=== PATIENT | female | born 1990 | race Caucasian/White ===

== ENCOUNTER 2022-04-09 08:21 | Outpatient (CLI) | payer OTHER, SELFPAY ==
[2022-04-09 09:55] LABS: Basophils Percent Auto 0.3 % (0.2-1.2); Eosinophils Absolute Auto 0.1 K/mm3 (0-0.3); Eosinophils Percent Auto 0.8 % (0-4.4); Hematocrit 34.4 % (37.0-47.0); Hemoglobin 11.4 g/dL (12.0-15.0); Immature Granulocyte Absolute 0.15 K/mm3 (0.00-0.031); Immature Granulocyte Percent A 1.9 % (0-0.5); Lymphocytes Absolute Auto 1.55 K/mm3 (0.9-3.2); Lymphocytes Percent Auto 19.8 % (18.3-44.2); Mean Corpuscular HGB Conc 33.1 g/dl (32-36); Mean Corpuscular Hemoglobin 29.2 pg (26-34); Monocytes Absolute Auto 0.4 K/mm3 (0.1-0.6); Monocytes Percent Auto 4.8 % (2.6-8.5); Neutrophils Absolute Auto 5.7 K/mm3 (1.3-6.7); Neutrophils Percent Auto 72.4 % (45.5-73.1); Platelet Count Result 198 k/mm3 (150-375); Red Blood Count 3.91 M/mm3 (4.2-5.4); Red Cell Distribution Width 12.8 % (11.5-14.5); White Blood Count 7.8 K/mm3 (4.5-10.0)
[2022-04-09 10:03] LABS: Glucose 1 Hour PP 50gm Dose 151 mg/dL
[2022-04-09 10:44] LABS: HIV 1/2 Ab P24 Ag Result Negative (Negative)
== END 2022-04-09 08:22 | disposition home or self-care (01) ==
LOC: ANHLAB 08:24
PROVIDERS: PCP Nurse Practitioner; Visit Provider Student in an Organized Health Care Education/Training Program
DX: Z34.90 Encounter for supervision of normal pregnancy, unspecified, unspecified trimester (principal); Z3A.00 Weeks of gestation of pregnancy not specified
CPT/HCPCS: 36415; 82947; 85025; 86703; G0432

== ENCOUNTER 2022-06-11 16:56 | Inpatient (IN) | payer OTHER, SELFPAY ==
[2022-06-11] VITALS (18 sets, daily range): BP systolic 93–122; BP diastolic 56–73; PULSE 78–108; O2SAT 98–100; BMI 37.8
--- NOTE | 2022-06-11 17:19 | P.PNAN_ITS ---
Anes - Eval Pre Procedure Procedure: Labor epidural Date/Time: 06/11/22 17:19 Pre Op Diagnosis: Induction of Labor Patient Data Age: 31 Gender: F Height: Weight: Allergies Allergy/AdvReac Type Severity Reaction Status Date / Time bismuth subsalicylate Allergy Severe Other Verified 06/07/22 16:03 [From Pepto-Bismol] Patient hx anesthesia problems: none Family hx anesthesia problems: none Results Review: All pre-operative results and documents have been reviewed as part of the pre- operative evaluation. 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
--- NOTE | 2022-06-11 17:28 | LDADM ---
This patient, Irina Brewer, was admitted to Labor/Delivery/Recovery 103 on 06/11/22 at 16:56. Plans for labor, pain management and were discussed with patient. Patient/family oriented to hospital policies and general routines including ID bracelet, bed and alarms, visiting hours, pain management, procedures, bathroom and other care routines, personal items, smoking policy, room service/diet and guest tray routines, infant security routines, and visiting hours. Patient/Family are encouraged to report perceived risks to care and to ask questions if they do not understand what they are told or what they should do. See OBIX for further documentation.
[2022-06-11 18:09] LABS: Basophils Percent Auto 0.5 % (0.2-1.2); Eosinophils Absolute Auto 0.1 K/mm3 (0-0.3); Eosinophils Percent Auto 0.8 % (0-4.4); Hematocrit 29.8 % (37.0-47.0); Hemoglobin 9.8 g/dL (12.0-15.0); Immature Granulocyte Absolute 0.02 K/mm3 (0.00-0.031); Immature Granulocyte Percent A 0.3 % (0-0.5); Lymphocytes Absolute Auto 1.77 K/mm3 (0.9-3.2); Lymphocytes Percent Auto 22.8 % (18.3-44.2); Mean Corpuscular HGB Conc 32.9 g/dl (32-36); Mean Corpuscular Hemoglobin 27.2 pg (26-34); Mean Corpuscular Volume 82.8 fl (80-100); Mean Platelet Volume 9.5 fl (7.4-10.4); Monocytes Absolute Auto 0.5 K/mm3 (0.1-0.6); Monocytes Percent Auto 6.8 % (2.6-8.5); Neutrophils Absolute Auto 5.3 K/mm3 (1.3-6.7); Neutrophils Percent Auto 68.8 % (45.5-73.1); Platelet Count Result 216 k/mm3 (150-375); Red Cell Distribution Width 14.2 % (11.5-14.5); White Blood Count 7.8 K/mm3 (4.5-10.0)
[2022-06-11] MEDS: miSOPROStol 25 MCG TABLET VAGINAL ×2 (19:00→23:00)
[2022-06-11 19:16] LABS: Rubella IgG Antibody 7.9 IU/ML
[2022-06-11 19:19] LABS: Hepatitis B Surface Antigen Negative (Negative)
[2022-06-11 20:17] LABS: Rapid Plasma Reagin Non-Reactive (NonReactive)
[2022-06-11 23:11] LABS: Glucose Point of Care 143 mg/dl (65-105)
[2022-06-12] VITALS (113 sets, daily range): BP systolic 77–130; BP diastolic 29–106; PULSE 62–215; RESP 16; TEMP 36.4–37.3; O2SAT 88–100
[2022-06-12 03:08] LABS: Glucose Point of Care 98 mg/dl (65-105)
[2022-06-12 07:04] LABS: Glucose Point of Care 94 mg/dl (65-105)
[2022-06-12] MEDS: LACTATED RINGERS 1,000 ML 125 ML IV CONT ×2 (08:11→09:45)
--- NOTE | 2022-06-12 08:33 | WPDHPUPDATE1 ---
History and Physical Update Update Date/Time: 06/12/22 08:33 31 yo at 39w3d who presents for IOL. has been complicated by diet controlled gestational diabetes. History and Physical has been reviewed, including an updated exam of the patient. There are NO changes in the patient's condition. Risks, benefits, and alternatives have been discussed and questions answered. Patient agrees to proceed with procedure. A/P: admit to L&D routine admission orders Rh+ GBS neg will monitor BS continuous EFM cytotec IOL
--- NOTE | 2022-06-12 08:36 | PM.OBPNLAB ---
Pain Control Date/time seen: 06/12/22 08:36 Pain control: tolerating well Pelvic Exam Dilation (cm): 4 Effacement (%): 50 station: -3 Amniotic membrane status: Intact Status status: Category l Assessment and Plan Assessment: induction ongoing Comments: AROM for scant amount of clear fluid
[2022-06-12] MEDS: OXYTOCIN 30 UNITS/NS 500 ML 30 UNITS/500 ML BAG IV CONT (08:40)
[2022-06-12] MEDS: FAMOTIDINE 20 MG/2 ML VIAL IV PUSH (11:27)
[2022-06-12 11:33] LABS: Glucose Point of Care 85 mg/dl (65-105)
--- NOTE | 2022-06-12 13:16 | PM.OBPRVD ---
OB - Delivery Note Procedure Procedure: Patient pushed for a spontaneous vaginal delivery. The fetus was delivered atraumatically and placed on the maternal abdomen. The cord was clamped and cut after 1 minute of life. The cord was double clamped and cut and a segment of cord was collected for cord gases. Cord blood was collected for blood type and Coomb's testing. The placenta delivered spontaneously and was noted to be intact. The perineum was inspected and there were no lacerations noted. The uterus was firm and good hemostasis was noted. The patient and fetus were stable in the delivery room. Induction method: Per Misoprostol Protocol Delivery augmentation: Rupture of Membranes and Pitocin Delivery monitor: External FHT Route of delivery: Episiotomy description: None Laceration Description: None Specimen: No Quantitative Blood Loss (ml): 250 Anesthesia type: Epidural Disposition: Floor () Complications: No immediate complications Baby Date of : 06/12/22 Time of : 13:01 Weeks of gestation at delivery: 39 gender: Female Weight (pounds): 8 Weight (ounces): 2 presentation: vertex position: Right Occiput Anterior Placenta delivery description: Spontaneous Cord Vessel Description: 3 Vessels score one minute: 8 score five minutes: 9 AMG Delivery Billing Delivery Delivery: Delivery Charge
[2022-06-12] MEDS: OXYTOCIN 30 UNITS/NS 500 ML 30 UNITS/500 ML BAG 125 UNITS IV CONT (13:28)
[2022-06-12] MEDS: IBUPROFEN 600 MG TABLET PO (16:02)
--- NOTE | 2022-06-12 17:29 | OBPPTRN ---
[id number] Patient transferred to post room #285 via W/C. Support person present. Oriented to unit, room, information board, rooming in, admission packet and security measures. Patient verbalizes understanding.
[2022-06-13] MEDS: IBUPROFEN 600 MG TABLET PO ×3 (01:42→22:42)
[2022-06-13 03:00] VITALS: BP 93/54; PULSE 78; RESP 16; TEMP 37; O2SAT 99
[2022-06-13 04:26] LABS: Glucose Point of Care 95 mg/dl (65-105)
[2022-06-13 04:53] LABS: Hematocrit 28.2 % (37.0-47.0); Hemoglobin 9.3 g/dL (12.0-15.0)
--- NOTE | 2022-06-13 08:18 | P.PNOB_ITS ---
OB - PN: Subj Subjective Date/time seen: 06/13/22 08:18 Patient comments: no complaints, pain well controlled and tolerating diet [place] feeding status: exclusively breast feeding Narrative: patient doing well this AM. No complaints. Pain is well controlled. She reports minimal bleeding. She is ambulating and voiding without difficulty. She is tolerating PO. She denies N/V, fever, chills. OB - PN: Obj Data Labs 06/13/22 04:23 Labs: Laboratory Results - last 24 hr 06/12/22 06/13/22 06/13/22 11:26 04:22 04:23 Hgb 9.3 L Hct 28.2 L POC Capillary Glucose 85 95 OB - PN A/P Plan day: 1 Plan: routine care Comments: patient doing well H/H , will start iron supplementation continue routine care Time Spent With Patient Time: Total time spent is greater than 50% in coordination of care (as documented) at patient's floor/unit and/or counseling patient: Time with patient: less than 15 minutes Review of Systems Review of Systems: All systems reviewed & are unremarkable except as noted in HPI and below Exam Const: General: comfortable and no acute distress Resp: Effort & Inspection: normal respiratory effort Cardio: Rate: regular rate GI: GI Palp: Yes Soft to palpation and No Tenderness to palpation present (GI) Auscultation: normal bowel sounds Other: fundus firm and below umbilicus. Psych: Affect: normal affect
[2022-06-13] MEDS: MULTIVIT/MIN/PREN/FOL AC/IRON TABLET 1 TAB PO (11:41)
[2022-06-13] MEDS: POLYSACCHARIDE IRON COMPLEX 150 MG CAPSULE PO ×2 (11:41→16:11)
[2022-06-13 11:42] VITALS: BP 97/67; PULSE 91; RESP 18; TEMP 37.1; O2SAT 98
[2022-06-13] MEDS: DOCUSATE SODIUM 100 MG CAPSULE PO ×2 (11:42→16:11)
[2022-06-13 12:40] VITALS: BP 93/60; PULSE 84; RESP 18; TEMP 36.7; O2SAT 99
[2022-06-13 20:00] VITALS: BP 100/69; PULSE 72; RESP 16; TEMP 36.8; O2SAT 98
--- NOTE | 2022-06-14 05:43 | PC.NURSE ---
05/24/2022 at 2200 Patient was given the opportunity to view the discharge video Mother & Baby Care, The First Two Weeks and to ask questions. Patient declined viewing the video and has been given the mother/baby guide for home reference. This is mother's fifth delivery.
[2022-06-14] MEDS: MULTIVIT/MIN/PREN/FOL AC/IRON TABLET 1 TAB PO (07:50)
[2022-06-14] MEDS: IBUPROFEN 600 MG TABLET PO ×2 (07:50→16:52)
[2022-06-14] MEDS: POLYSACCHARIDE IRON COMPLEX 150 MG CAPSULE PO ×2 (07:50→16:51)
[2022-06-14] MEDS: MEASLES,MUMPS,RUBELLA VACCINE 0.5 ML VIAL SUB-Q (07:51)
[2022-06-14 08:45] VITALS: BP 96/65; PULSE 77; RESP 16; TEMP 37.1; O2SAT 97
--- NOTE | 2022-06-14 09:15 | PM.OBDSVD ---
DS: Admitting Diagnosis Discharge Date 06/14/22 Admitting Diagnosis Intrauterine at term gestational diabetes DS: Discharge Diagnosis Discharge Diagnosis (1) : Code(s): Z34.90 - Encounter for supervision of normal , unspecified, unspecified trimester Status: Acute OB - DS: Summary OB Procedures : None OB Procedures Intrapartum: Spontaneous Vag Delivery OB Procedures: : None Peripartum Data Delivery Method: Natural Vaginal Laceration Description: None complications: none Status at Discharge Functional status at discharge: independent ambulation Overall status at discharge: patient is back to baseline Time Spent with Patient Time attestation: Total time spent providing and/or coordinating discharge services: Time spent: Less than 30 minutes Exam Const: General: comfortable and no acute distress Resp: Effort & Inspection: normal respiratory effort Auscultation: clear to auscultation bilaterally Cardio: Rate: regular rate GI: GI Palp: Yes Soft to palpation Auscultation: normal bowel sounds Other: Fundus firm below umbilicus Psych: Appearance: grossly normal Mental Status: mental status grossly normal Affect: normal affect Discharge Plan Discharge Discharging Clinician: Joce Nunez Patient Disposition: Home, Self-Care Activity: as tolerated and pelvic rest Diet: regular Patient Instructions: Antibiotic Form Stand Alone Forms: General Discharge Information Follow-up/Referrals: Joce Nunez MD [Physician] - Discharge Medications: New acetaminophen [Mapap (acetaminophen)] 325 mg Tablet 650 mg PO Q6H PRN (Reason: Mild Pain (1-3) Or Headache) Qty: 30 0RF ibuprofen 600 mg Tablet 600 mg PO Q6H PRN (Reason: Cramping) Qty: 30 0RF polysaccharide iron complex 150 mg iron Capsule 150 mg PO BIDWM Qty: 60 0RF Date of admission: 06/11/22 16:56 Primary Care Provider: Claude,Cristin Daniel Admitting Provider: Joce Nunez Attending physician on admission: Joce Nunez Condition: Stable
--- NOTE | 2022-06-14 10:21 | PC.NURSE ---
[id number] Introductions were made and Mother verbalizes she is able to independently latch with appropriate positioning/alignment. She denies any nipple discomfort and when there is discomfort she repositions latch optimally. Mother with successful history demonstrates latching her infant and is responsively . Infant is currently meeting outcomes for weight (getting close to 10% but mother states she feels her milk filling her breast), output, jaundice and feeding frequencies of 8-12 times in 24 hours. Mother declines any additional assistance/education at this time. Mother is encouraged to call for assistance if her infant doesn?t latch or there is discomfort with latching. Mother voiced understanding of information shared and mom and baby guide reviewed for additional resource information. Reported to the primary RN.
[2022-06-14] MEDS: DOCUSATE SODIUM 100 MG CAPSULE PO (16:51)
== END 2022-06-14 18:57 | disposition home or self-care (01) | DRG 807 ==
LOC: ANHLDR 16:59 → ANHOB2 06-12 16:50
PROVIDERS: Admitting Provider Student in an Organized Health Care Education/Training Program; PCP Nurse Practitioner; Visit Provider Student in an Organized Health Care Education/Training Program
DX: O24.429 Gestational diabetes mellitus in childbirth, unspecified control (principal); Z37.0 Single live birth; Z3A.39 39 weeks gestation of pregnancy
CPT/HCPCS: 36415; 82948; 85014; 85018; 85025; 86592; 86762; 86850; 86900; 86901; 87340; 90710; A9270; J2590; J2795; J7120

== ENCOUNTER → 2022-06-15 09:24 | Outpatient (CLI) | payer OTHER, SELFPAY ==
--- NOTE | ~2022-06-15 | MMUS_ITS ---
EXAMINATION: MM diagnostic tobi BI w rozina, US breast BI complete HISTORY: Left breast lump. TECHNIQUE: Additional 3-D tomosynthesis images of the breasts were performed and synthetic 2-D images were generated. CAD analysis was submitted and interpreted. High resolution bilateral complete breas t ultrasound was performed. COMPARISON: No prior studies for comparison. BREAST PARENCHYMAL COMPOSITION: The breasts are extremely dense, which lowers the sensitivity of mamm ography FINDINGS: MAMMOGRAPHIC FINDINGS: There is an obscured mass in the lower inner quadrant of the left breast, middle third. No mammograph ic evidence for malignancy in the right breast. ULTRASOUND: Complete bilateral US of all 4 quadrants of the breasts and retroareolar region was reviewed. Right breast: Normal heterogeneous echotexture without focal solid or cystic mass. Left breast: At 6-7 o'clock, 8 cm from the nipple in the area of palpable concern there is an oval ci rcumscribed parallel oriented hypoechoic mass measuring 4.2 x 2 x 3.6 cm corresponding to the mammogr aphic finding. There is internal vascularity. Mixed posterior attenuation. No other discrete masses a re identified. IMPRESSION: 1. Abnormal solid left breast mass at C6-7 o'clock, 8 cm from the nipple. 2. Ultrasound-guided left breast biopsy recommended. BI-RADS category 4, suspicious findings. Reviewed, dictated and finalized at location A. IC RELATIONS REPRESENTATIVE IMPRESSION: 1. Abnormal solid left breast mass at C6-7 o'clock, 8 cm from the nipple. 2. Ultrasound-guided left breast biopsy recommended. BI-RADS category 4, suspicious findings.
== END ==
PROVIDERS: PCP Nurse Practitioner; Visit Provider Student in an Organized Health Care Education/Training Program
DX: N63.0 Unspecified lump in unspecified breast (principal); R92.8 Other abnormal and inconclusive findings on diagnostic imaging of breast
CPT/HCPCS: 76641; 77062; 77066; G0279

== ENCOUNTER 2022-07-26 15:35 | Outpatient (CLI) | payer OTHER, SELFPAY ==
[2022-07-26 16:54] LABS: Beta HCG Quantitative < 2.39 mIU/ML
== END 2022-07-26 15:36 | disposition home or self-care (01) ==
LOC: ANHLAB 15:36
PROVIDERS: PCP Nurse Practitioner; Visit Provider Student in an Organized Health Care Education/Training Program
DX: N92.6 Irregular menstruation, unspecified (principal)
CPT/HCPCS: 36415; 84702

== ENCOUNTER 2023-12-20 08:53 | Outpatient (CLI) | payer BC, OTHER, SELFPAY ==
[2023-12-20 09:27] LABS: Basophils Percent Auto 0.5 % (0.2-1.2); Eosinophils Absolute Auto 0.1 K/mm3 (0-0.3); Eosinophils Percent Auto 0.7 % (0-4.4); Hematocrit 41.2 % (37.0-47.0); Hemoglobin 13.8 g/dL (12.0-15.0); Immature Granulocyte Absolute 0.03 K/mm3 (0.00-0.031); Immature Granulocyte Percent A 0.4 % (0-0.5); Lymphocytes Absolute Auto 2.29 K/mm3 (0.9-3.2); Lymphocytes Percent Auto 27.9 % (18.3-44.2); Mean Corpuscular HGB Conc 33.5 g/dl (32-36); Mean Corpuscular Hemoglobin 28.9 pg (26-34); Mean Corpuscular Volume 86.2 fl (80-100); Monocytes Absolute Auto 0.5 K/mm3 (0.1-0.6); Neutrophils Absolute Auto 5.3 K/mm3 (1.3-6.7); Neutrophils Percent Auto 64.5 % (45.5-73.1); Platelet Count Result 282 k/mm3 (150-375); Red Blood Count 4.78 M/mm3 (4.2-5.4); Red Cell Distribution Width 12.5 % (11.5-14.5); White Blood Count 8.2 K/mm3 (4.5-10.0)
[2023-12-20 10:26] LABS: HIV 1/2 Ab P24 Ag Result Negative (Negative)
[2023-12-20 10:39] LABS: Hepatitis B Surface Antigen Negative (Negative); Rubella IgG Antibody 31.2 IU/ML
[2023-12-20 16:01] LABS: Rapid Plasma Reagin Non-Reactive (NonReactive)
[2023-12-22 13:59] LABS: CMV IgG Antibody <0.60 U/mL
== END 2023-12-20 08:54 | disposition home or self-care (01) ==
PROVIDERS: PCP Nurse Practitioner; Visit Provider Student in an Organized Health Care Education/Training Program
DX: N94.89 Other specified conditions associated with female genital organs and menstrual cycle (principal)
CPT/HCPCS: 36415; 84702; 85025; 86592; 86644; 86703; 86747; 86762; 86787; 86850; 86900; 86901; 87086; 87088; 87340; G0432

== ENCOUNTER 2024-05-28 10:25 | Outpatient (CLI) | payer OTHER, SELFPAY ==
--- NOTE | ~2024-05-28 | US_ITS ---
US breast LT limited 05/28/2024 10:46 Indication: Palpable left breast lump in the area of known mass which was previously biopsy-proven be nign. Procedure: High-resolution Limited ultrasound of the left breast Comparison: Ultrasound dated 06/15/2022 Findings: There is an oval parallel oriented circumscribed hypoechoic mass at C6-7 o'clock, 5 cm from the nipple with internal vascularity, no posterior features measuring 4.7 x 4.1 x 1.8 cm compared wi th 4.2 x 3.6 x 2 cm on prior examination. Impression: 1: Enlargement of hypoechoic left breast mass at C6-7 o'clock, 5 cm from the nipple. This was previou sly biopsy-proven benign. BI-RADS CATEGORY 3-PROBABLY BENIGN FINDING RECOMMENDATION: 6 month follow-up Limited left breast ultrasound recommended. Reviewed, dictated and finalized at location B. ARCH EPIDEMIOLOGIST Impression: 1: Enlargement of hypoechoic left breast mass at C6-7 o'clock, 5 cm from the ni pple. This was previously biopsy-proven benign. BI-RADS CATEGORY 3-PROBABLY BENIGN FINDING RECOMMENDATION: 6 month follow-up Limited left breast ultrasound recommended.
== END 2024-05-28 10:26 | disposition home or self-care (01) ==
LOC: ANHIMG 10:28
PROVIDERS: PCP Nurse Practitioner; Visit Provider Student in an Organized Health Care Education/Training Program
DX: N63.0 Unspecified lump in unspecified breast (principal); R92.8 Other abnormal and inconclusive findings on diagnostic imaging of breast
CPT/HCPCS: 76642

== ENCOUNTER 2024-06-03 03:11 | Outpatient (CLI) | payer OTHER, SELFPAY ==
[2024-06-03 03:30] VITALS: BP 104/72; PULSE 94
[2024-06-03 03:45] VITALS: BP 105/66; PULSE 96
--- NOTE | 2024-06-03 03:45 | PC.NURSE ---
Call placed to Dr. Ronquillo with pt c/o decrease movement, pt stated she has not felt baby move since yesterday. SInce being here she has felt baby move 7 times, but states that he is not moving as much as he normally does. FHR and CTX reported. Order to d/c pt home undelievered.
--- NOTE | 2024-06-03 03:55 | PC.NURSE ---
Pt discharged home undelivered in stable condition per order from dr. brown. Discharged labor precautions with pt. Pt stated understanding. All questions and concerns answered. PT ambulated out of unit with all belongings.
== END 2024-06-03 03:56 | disposition home or self-care (01) ==
LOC: ANHOBOP 03:18 → ANHLDR 03:23
PROVIDERS: PCP Nurse Practitioner; Visit Provider Student in an Organized Health Care Education/Training Program
DX: Z34.90 Encounter for supervision of normal pregnancy, unspecified, unspecified trimester (principal); Z3A.00 Weeks of gestation of pregnancy not specified
CPT/HCPCS: 59025

== ENCOUNTER 2024-06-05 16:23 | Outpatient (CLI) | payer OTHER, SELFPAY ==
[2024-06-05 16:47] LABS: Hematocrit 30.8 % (37.0-47.0); Hemoglobin 10.1 g/dL (12.0-15.0); Mean Corpuscular HGB Conc 32.8 g/dl (32-36); Mean Corpuscular Hemoglobin 27.6 pg (26-34); Mean Corpuscular Volume 84.2 fl (80-100); Mean Platelet Volume 9.5 fl (7.4-10.4); Platelet Count Result 214 k/mm3 (150-375); Red Blood Count 3.66 M/mm3 (4.2-5.4); Red Cell Distribution Width 13.8 % (11.5-14.5); White Blood Count 8.9 K/mm3 (4.5-10.0)
[2024-06-05 17:43] LABS: HIV 1/2 Ab P24 Ag Result Negative (Negative)
[2024-06-06 07:03] LABS: Rapid Plasma Reagin Non-Reactive (NonReactive)
== END 2024-06-05 16:24 | disposition home or self-care (01) ==
LOC: ANHLAB 16:24
PROVIDERS: PCP Nurse Practitioner; Visit Provider Student in an Organized Health Care Education/Training Program
DX: Z34.90 Encounter for supervision of normal pregnancy, unspecified, unspecified trimester (principal); Z3A.00 Weeks of gestation of pregnancy not specified
CPT/HCPCS: 36415; 85027; 86592; 86703; G0432

== ENCOUNTER 2024-06-28 14:08 | Outpatient (CLI) | payer OTHER, SELFPAY ==
--- NOTE | ~2024-06-28 | US_ITS ---
EXAMINATION: US OB follow up DATE: 06/28/2024 16:03 DAIRY TESTER INDICATION: OB followup. 6, para 5 Estimated date of delivery : 07/24/2024 Gestational age by estimated date: 36 weeks and 2 days TECHNIQUE: Real-time transabdominal obstetric ultrasound. FINDINGS: There is a single intrauterine gestation in vertex presentation. The placenta is to the maternal rig ht with the spine to the maternal left. cardiac activity and movement is noted with a heart rate of 167 beats per minute. The cervix measures 3.5 cm in length, and is closed. The following biometric data were obtained: Biparietal diameter (BPD): 9.6 cm; head circumference (HC): 34.4 cm; abdominal circumference (AC): 35 .4 cm; femur length (FL): 7.5 cm. These measurements are concordant. Estimated weight is 3697 g +/- 555 g, which correlates with the greater than 97th percentile wh en 07/24/2024 is used as estimated date of delivery. As single measurements, these parameters are each equal to the following estimated gestational ages: BPD: 39 weeks 1 days. HC: 39 weeks 5 days. AC: 39 weeks 2 days (greater than 97th percentile). FL: 38 weeks 3 days. estimated gestational age based solely on measurements from this exam is 39 weeks 1 days +/- 2 weeks 5 days. Mild pelvic caliectasis is redemonstrated within the right kidney. The bladder is distended. Amniotic fluid index measures 18.4 cm, (normal range is from 7.7 cm to 24.9 cm). IMPRESSION: Single intrauterine gestation in vertex presentation. Estimated gestational age based on ultrasound measurements is 39 weeks and 1 day. Amniotic fluid inde x is within normal limits The cervix measures 3.5 cm Reviewed, dictated and finalized at location A. Y TESTER IMPRESSION: Single intrauterine gestation in vertex presentation. Estimated gestational age based on ultrasound measurements is 39 weeks and 1 da y. Amniotic fluid index is within normal limits The cervix measures 3.5 cm
== END 2024-06-28 14:09 | disposition home or self-care (01) ==
PROVIDERS: PCP Nurse Practitioner; Visit Provider Student in an Organized Health Care Education/Training Program
DX: Z34.83 Encounter for supervision of other normal pregnancy, third trimester (principal)
CPT/HCPCS: 76816

== ENCOUNTER 2024-07-09 11:25 | Outpatient (RCR) | payer OTHER, SELFPAY ==
[2024-06-28 15:59] VITALS: BP 112/71; PULSE 100
[2024-07-02 13:52] VITALS: BP 116/66; PULSE 102
[2024-07-05 12:51] VITALS: BP 110/73; PULSE 129
[2024-07-05 12:54] VITALS: BP 110/73; PULSE 125
[2024-07-05 13:22] LABS: Add Urine Microscopic? YES; Appearance Urine Cloudy (Clear); Bacteria Urine 3+ /hpf; Bilirubin Urine Negative (Negative); Blood Urine Negative (Negative); Color Urine Yellow (Yellow); Glucose Urine UA Negative (Negative); Ketones Urine 3+ mg/dL (Negative); Leukocyte Esterase Ur 1+ LEU/UL (Negative); Nitrate Urine Negative (Negative); Protein Urine Trace mg/dL (Negative); RBC Urine 0-2 /hpf (0-2); Specific Grav Ur 1.025 (1.001-1.035); Squamous Epithelial Cell Urine Moderate /hpf (Few); Urobilinogen Urine 0.2 mg/dL (<2.0); WBC Urine 21-50 /hpf (0-3); pH Urine 5.5 (5.0-9.0)
--- NOTE | ~2024-07-09 | US_ITS ---
EXAMINATION: US OB BPP wo non-stress DATE: 07/02/2024 14:27 INDICATION: Gestational diabetes TECHNIQUE: Real-time pelvic ultrasound was performed. The interpreting radiologist was not present fo r the study. COMPARISON: None. FINDINGS: There is a single living fetus in vertex presentation. The placenta is maternal right. cardiac activity and movement are demonstrated. heart rate is 140 beats per minute (bpm). Biophysical profile performed by the technologist: breathing (30 sec sustained breathing in 30 minutes): 2 out of 2 movement (3 gross body movements in 30 minutes): 2 out of 2 tone (one episode of cocfwwq-iysgxwvrn-hlkhuif limb movement): 2 out of 2 Amniotic fluid pocket (2 cm): 2 out of 2 Total score: 8 out of 8 IMPRESSION: 1. Single living intrauterine in vertex presentation with heart rate of 140 bpm. 2. Biophysical profile 8 out of 8. Reviewed, dictated and finalized at location B. ESSOR OF RELIGIOUS STUDIES
--- NOTE | ~2024-07-09 | US_ITS ---
EXAMINATION: US OB BPP wo non-stress DATE: 07/09/2024 12:50 INDICATION: Gestational diabetes. TECHNIQUE: Real-time pelvic ultrasound was performed. COMPARISON: Ultrasound 07/02/2024 FINDINGS: There is a single living fetus in vertex presentation. The placenta is on the right. heart rat e is 142 beats per minute (bpm). The amniotic fluid index is 14.5 cm, which is normal. Biophysical profile performed by the technologist: breathing (30 sec sustained breathing in 30 minutes): 2 out of 2 movement (3 gross body movements in 30 minutes): 2 out of 2 tone (one episode of kwtifwr-yhraeokht-fawwkci limb movement): 2 out of 2 Amniotic fluid pocket (2 cm): 2 out of 2 Total score: 8 out of 8 IMPRESSION: 1. Single living fetus in vertex presentation. 2. Biophysical profile 8 out of 8. Reviewed, dictated and finalized at location A. RUNNER
[2024-07-09 11:51] VITALS: BP 106/74; PULSE 119
[2024-07-09 12:01] VITALS: BP 109/68; PULSE 124
[2024-07-09 12:06] VITALS: BP 109/68; PULSE 124
== END 2024-09-26 23:59 | disposition home or self-care (01) ==
LOC: ANHOBOP 11:25
PROVIDERS: PCP Nurse Practitioner; Visit Provider Student in an Organized Health Care Education/Training Program
DX: Z36.89 Encounter for other specified antenatal screening (principal); Z3A.39 39 weeks gestation of pregnancy
CPT/HCPCS: 59025; 76816; 76819; 81001; 87086

== ENCOUNTER 2024-07-11 06:11 | Inpatient (IN) | payer OTHER, SELFPAY ==
[2024-07-11] VITALS (147 sets, daily range): BP systolic 85–169; BP diastolic 44–152; PULSE 87–166; RESP 20; TEMP 36.2–37.2; O2SAT 95–100; BMI 39.9
[2024-07-11 07:13] LABS: Basophils Percent Auto 0.2 % (0.2-1.2); Eosinophils Absolute Auto 0.1 K/mm3 (0-0.3); Hematocrit 28.9 % (37.0-47.0); Hemoglobin 9.4 g/dL (12.0-15.0); Immature Granulocyte Absolute 0.04 K/mm3 (0.00-0.031); Immature Granulocyte Percent A 0.5 % (0-0.5); Lymphocytes Absolute Auto 1.82 K/mm3 (0.9-3.2); Mean Corpuscular HGB Conc 32.5 g/dl (32-36); Mean Corpuscular Hemoglobin 26.3 pg (26-34); Mean Corpuscular Volume 80.7 fl (80-100); Monocytes Absolute Auto 0.5 K/mm3 (0.1-0.6); Monocytes Percent Auto 6.2 % (2.6-8.5); Neutrophils Absolute Auto 5.8 K/mm3 (1.3-6.7); Neutrophils Percent Auto 70.1 % (45.5-73.1); Platelet Count Result 210 k/mm3 (150-375); Red Blood Count 3.58 M/mm3 (4.2-5.4); Red Cell Distribution Width 15.3 % (11.5-14.5); White Blood Count 8.3 K/mm3 (4.5-10.0)
[2024-07-11 07:46] LABS: Glucose Point of Care 123 mg/dl (65-105)
[2024-07-11 07:58] LABS: HIV 1/2 Ab P24 Ag Result Negative (Negative)
[2024-07-11] MEDS: LACTATED RINGERS 1,000 ML 125 ML IV CONT ×3 (08:12→16:46)
[2024-07-11] MEDS: OXYTOCIN 30 UNITS/NS 500 ML 30 UNITS/500 ML BAG IV CONT (08:13)
[2024-07-11 08:14] LABS: Rapid Plasma Reagin Non-Reactive (NonReactive)
[2024-07-11 08:49] LABS: Glucose Point of Care 100 mg/dl (65-105)
[2024-07-11 09:50] LABS: Glucose Point of Care 98 mg/dl (65-105)
--- NOTE | 2024-07-11 12:03 | WPDANESEPP ---
Anes - Eval Pre Procedure Procedure: labor pain management Date/Time: 07/11/24 12:03 Surgeon: dutch Preop Diagnosis: pain during labor Pre Op Diagnosis: IOL Patient Data Age: 34 Gender: F Height: Weight: Last Vital Signs Temp 97.1 F L 07/11/24 07:35 Pulse 107 H 07/11/24 12:01 BP 119/81 07/11/24 12:01 Pulse Ox 98 07/11/24 12:02 Allergies Allergy/AdvReac Type Severity Reaction Status Date / Time bismuth subsalicylate (From Allergy Severe Other Verified 07/09/24 10:26 Pepto-Bismol) Home Medications ?Medication ?Instructions ?Recorded ?Confirmed ?Type vits no.126-ferrous fum 1 tablet PO HS 12/20/23 07/09/24 History 28 mg iron-folic acid 800 mcg tablet (Classic ) docusate sodium 100 mg capsule 100 mg PO 2XW 07/05/24 07/09/24 History (Col-Rite) ergocalciferol (vitamin D2) 1,000 2,000 unit PO DAILY 07/05/24 07/09/24 History unit capsule ferrous sulfate 325 mg (65 mg 325 mg PO 2XW 07/05/24 07/09/24 History iron) tablet nitrofurantoin 100 mg PO Q12H #14 caps 07/06/24 07/09/24 Rx monohydrate/macrocrystals 100 mg capsule (Macrobid) Laboratory Tests 07/11/24 07/11/24 07/11/24 06:24 07:43 08:45 WBC 8.3 K/mm3 (4.5-10.0) RBC 3.58 L M/mm3 (4.2-5.4) Hgb 9.4 L g/dL (12.0-15.0) Hct 28.9 L % (37.0-47.0) MCV 80.7 fl (80-100) MCH 26.3 pg (26-34) MCHC 32.5 g/dl (32-36) RDW 15.3 H % (11.5-14.5) Plt Count 210 k/mm3 (150-375) MPV 10.0 fl (7.4-10.4) Immature Gran % (Auto) 0.5 % (0-0.5) Neut % (Auto) 70.1 % (45.5-73.1) Lymph % (Auto) 22.0 % (18.3-44.2) [place] % (Auto) 6.2 % (2.6-8.5) Eos % (Auto) 1.0 % (0-4.4) Baso % (Auto) 0.2 % (0.2-1.2) Lymph # (Auto) 1.82 K/mm3 (0.9-3.2) [place] # (Auto) 0.5 K/mm3 (0.1-0.6) Eos # (Auto) 0.1 K/mm3 (0-0.3) Baso # (Auto) 0.0 K/mm3 (0.0-0.1) Abs Immat Gran (auto) 0.04 H K/mm3 (0.00-0.031) Absolute Neuts (auto) 5.8 K/mm3 (1.3-6.7) Absolute Nucleated RBC 0.000 K/mm3 (0.0-0.012) Nucleated RBC % 0.0 % (0.0-0.2) POC Capillary Glucose 123 H mg/dl 100 mg/dl (65-105) (65-105) RPR Non-reactive (NonReactive) HIV 1&2 Ab/P24 Ag 4thGn Negative (Negative) Blood Type A Positive Antibody Screen Negative 07/11/24 09:46 WBC RBC Hgb Hct MCV MCH MCHC RDW Plt Count MPV Immature Gran % (Auto) Neut % (Auto) Lymph % (Auto) [place] % (Auto) Eos % (Auto) Baso % (Auto) Lymph # (Auto) [place] # (Auto) Eos # (Auto) Baso # (Auto) Abs Immat Gran (auto) Absolute Neuts (auto) Absolute Nucleated RBC Nucleated RBC % POC Capillary Glucose 98 mg/dl (65-105) RPR HIV 1&2 Ab/P24 Ag 4thGn Blood Type Antibody Screen Patient hx anesthesia problems: none Family hx anesthesia problems: none Results Review: All pre-operative results and documents have been reviewed as part of the pre-operative evaluation. [facility] Past Medical History Medical History Suppression of menses Encounter for initial insertion of intrauterine contraceptive device Surgical History Surgical History History of placement of ear tubes Family History Family History Father Testicular cancer Diabetes mellitus Depression Hypertension Grandparent Diabetes mellitus Cancer Social History Social History Smoking status: Never smoker Second hand tobacco smoke exposure: No Alcohol intake: never Substance use: never Substance use type: does not use Do You Feel Safe in your Home?: Yes Lack of Transportation: No Lack of Food: Never True Current Housing: I Have Housing Concerned About Future Housing: No Difficulty Paying Gas/Electric Bills: No Difficulty Paying for Meds: No Currently Unemployed: No Education: Master's Degree or Higher Difficulty w/ Childcare or Family Care: No Living arrangements: with family Occupation/Education: occupation 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
[2024-07-11] MEDS: FAMOTIDINE 20 MG/2 ML VIAL IV PUSH (12:45)
[2024-07-11 14:13] LABS: Glucose Point of Care 80 mg/dl (65-105)
--- NOTE | 2024-07-11 15:45 | WPDHPUPDATE1 ---
History and Physical Update Update Date/Time: 07/11/24 15:46 34 yo at 38w1d who presents for IOL. complicated by diet controlled gestational diabetes. History and Physical has been reviewed, including an updated exam of the patient. There are NO changes in the patient's condition. Risks, benefits, and alternatives have been discussed and questions answered. Patient agrees to proceed with procedure. A/P: admit to L&D routine admission orders lab reviewed Rh+ GBS neg diet controlled GDM -will monitor/treat blood sugars in labor as needed -continuous EFM -plan for pitocin and AROM for augmentation
[2024-07-11 16:00] LABS: Glucose Point of Care 77 mg/dl (65-105)
--- NOTE | 2024-07-11 18:09 | PM.OBPRVD ---
OB - Vaginal Delivery Note Procedure Delivery date: 07/11/24 Events: Gestational Diabetes Induction method: Per Pitocin Protocol Delivery augmentation: Rupture of Membranes Delivery monitor: External FHT and External Uterine Route of delivery: Episiotomy description: None Laceration Description: None Specimen: No Quantitative Blood Loss (ml): 150 Anesthesia type: Spinal Disposition: Floor Complications: No immediate complications Narrative: Patient pushed for a spontaneous vaginal delivery. The fetus was delivered atraumatically and placed on the maternal abdomen. The cord was clamped and cut after 4.5 minute of life and the pulse had diminished. The cord was double clamped and cut and a segment of cord was collected for cord gases. Cord blood was collected for blood type and Coomb's testing. The placenta delivered spontaneously and was noted to be intact. The perineum was inspected and was noted to be intact. A superficial sebaceous cyst was noted at the introitus of the vagina at the right side. Patient was offered to have the cyst drained while she was anesthetized. The cyst was approximately 2 cm. A simple stab incision was made. The cyst was drained of purulent thin watery fluid. The incision was made hemostatic with a simple figure of 8 suture of 3-0 vicryl. The uterus palpated firm and good hemostasis was noted. Upon examination of the male fetus, it was noted that the had a partial circumcision and hypospadias. Receiving shipping specialist discussed the findings with the patient. [place] Baby Date of : 07/11/24 Time of : 17:49 Gestational Age by Date: 38 Infant gender: Male presentation: vertex position: Right Occiput Anterior Placenta delivery description: Spontaneous Cord Vessel Description: 3 Vessels score one minute: 8 score five minutes: 9
[2024-07-11] MEDS: OXYTOCIN 30 UNITS/NS 500 ML 30 UNITS/500 ML BAG 125 UNITS IV CONT (18:35)
[2024-07-11] MEDS: ACETAMINOPHEN 500 MG TABLET 1000 MG (18:54)
[2024-07-11] MEDS: WITCH HAZEL 40 PADS 1 PAD TOPICAL (19:14)
[2024-07-11] MEDS: BENZOCAINE 20% AER SPR (*SP) 56 GM CAN 1 SPRAY TOPICAL (19:15)
[2024-07-11] MEDS: IBUPROFEN 600 MG TABLET PO (22:07)
[2024-07-12] MEDS: ACETAMINOPHEN 325 MG TABLET 650 MG PO (02:50)
[2024-07-12 04:59] LABS: Hematocrit 32.1 % (37.0-47.0)
[2024-07-12] MEDS: DOCUSATE SODIUM 100 MG CAPSULE PO (07:00)
[2024-07-12] MEDS: MULTIVIT/MIN/PREN/FOL AC/IRON TABLET 1 TAB PO (07:01)
[2024-07-12] MEDS: IBUPROFEN 600 MG TABLET PO (07:01)
[2024-07-12 07:25] VITALS: BP 107/81; PULSE 85; RESP 17; TEMP 36.8; O2SAT 99
--- NOTE | 2024-07-16 07:45 | P.DS_ITS ---
DS: Admitting Diagnosis Discharge Date 07/12/24 Admitting Diagnosis intrauterine at term gestation diabetes DS: Discharge Diagnosis Discharge Diagnosis (1) Normal vaginal delivery: Code(s): O80 - Encounter for full-term uncomplicated delivery Status: Acute OB - DS: Summary OB Procedures : None OB Procedures Intrapartum: Spontaneous Vag Delivery OB Procedures: : None Peripartum Data Laceration Description: None Episiotomy description: None Status at Discharge Functional status at discharge: independent ambulation Overall status at discharge: patient is back to baseline Time Spent with Patient Time attestation: Total time spent providing and/or coordinating discharge services: Time spent: Less than 30 minutes Exam Const: General: comfortable and no acute distress Resp: Effort & Inspection: normal respiratory effort Auscultation: clear to auscultation bilaterally Cardio: Rate: regular rate GI: GI Palp: Yes Soft to palpation Auscultation: normal bowel sounds Other: Fundus firm below umbilicus Psych: Appearance: grossly normal Mental Status: mental status grossly normal Affect: normal affect Discharge Plan Discharge Consulting providers: Kendra Moreira Discharging Clinician: Joce Nunez Patient Disposition: Home, Self-Care Activity: as tolerated and pelvic rest Diet: as tolerated Discharge Instructions: Education: Mom and Baby Guide Given to: Mother Follow-Up: Call your delivering provider's office for an appointment to be seen in: 4 Weeks Mom and baby should come to the [facility] for the follow-up appointment. Appointment Date/Time: at What to expect at your follow-up visit: Call [phone] if you are unable to keep your appointment time. BREAST CARE: * Wear a snug supportive bra. * For engorgement discomfort: Breast Feeding: * Apply warm moist washcloths * Express milk as needed to relieve engorgement * Wear loose clothing Bottle Feeding: * May apply ice packs * For sore nipples: * Identify correct latch-on * Apply warm moist washcloths before and after nursing * Air dry nipples after nursing * May apply Lansinoh cream to nipples ABDOMINAL INCISION: (if applicable) * Allow incision to air dry * Do NOT use lotions for powders on your incision * When showering, allow soap and water to run over the incision, but do not wash incision EPISIOTOMY/PERINEAL CARE: * Until bleeding stops, use your xenia bottle after urinating * Change your pad frequently throughout the day * You may take sitz baths several times a day (fill your bathtub with warm water and soak for 20 minutes.) Do NOT bathe in the water * No tub baths until seen by your physician - You may shower ACTIVITY: * Rest as much as possible. * Do not exercise or lift anything heavier than your baby (such as laundry or other children.) * Avoid stairs or driving as much as possible. * Do not put anything into the vagina. No douching, tampons, or sexual activity until seen by physician. NOTIFY PHYSICIAN IF YOU HAVE ANY QUESTIONS OR IF ANY OF THE FOLLOWING SYMPTOMS OCCUR: * If your episiotomy or incision becomes red, swollen, or more painful than what you have experienced in the hospital. * If your vaginal bleeding becomes foul smelling. * If your vaginal bleeding becomes more heavy than a period or if your bleeding changes from pink to bright red. However, you may pass an occasional walnut- sized clot once or twice for the first week . * If you experience a sharp, shooting pain in you calves. * If you discover a hard, reddened area on your breast or if you experience flu- like symptoms. DIET: * Eat regular, well-balanced meals. * Drink plenty of fluids daily. If , drink to thirst. Patient Instructions: Antibiotic Form, Your Baby (DC), Vaginal Delivery (DC) Patient Language: Sierra Leonean Stand Alone Forms: General Discharge Information Follow-up/Referrals: Joce Nunez MD [Physician] - Discharge Medications: New acetaminophen 500 mg tablet 500 mg PO Q6H PRN (Reason: pain) Qty: 30 0RF ibuprofen 600 mg tablet 600 mg PO Q6H PRN (Reason: pain) Qty: 30 0RF Continued Classic 28 mg iron- 800 mcg tablet 1 tablet PO HS ferrous sulfate 325 mg (65 mg iron) tablet 325 mg PO 2XW docusate sodium [Col-Rite] 100 mg capsule 100 mg PO 2XW Patient Comments: Takes on the days she takes the iron supplement ergocalciferol (vitamin D2) 1,000 unit capsule 2,000 unit PO DAILY nitrofurantoin monohyd/m-cryst [Macrobid] 100 mg capsule 100 mg PO Q12H Qty: 14 0RF Rx Instructions: must administer with a meal/food Date of admission: 07/11/24 06:11 Primary Care Provider: Claude,Cristin Daniel Admitting Provider: Joce Nunez Attending physician on admission: Joce Nunez Condition: Stable
== END 2024-07-12 07:56 | disposition home or self-care (01) | DRG 542 ==
LOC: ANHLDR 06:20 → ANHOB2 20:42
PROVIDERS: Admitting Provider Student in an Organized Health Care Education/Training Program; PCP Nurse Practitioner; Visit Provider Student in an Organized Health Care Education/Training Program
DX: O24.420 Gestational diabetes mellitus in childbirth, diet controlled (principal); Z37.0 Single live birth; Z3A.38 38 weeks gestation of pregnancy; N94.89 Other specified conditions associated with female genital organs and menstrual cycle; O99.892 Other specified diseases and conditions complicating childbirth
CPT/HCPCS: 36415; 82948; 85014; 85018; 85025; 86592; 86703; 86850; 86900; 86901; A9270; G0432; J2590; J2795; J7120

== ENCOUNTER 2024-09-14 18:45 | Emergency (ER) | payer OTHER, SELFPAY ==
--- NOTE | 2024-09-14 18:47 | ED_ITS ---
HPI - URI/Sore Throat General Chief Complaint: Upper Respiratory Infection Stated Complaint: Sore throat / fever Time Seen by Provider: 09/14/24 18:50 Source: patient, RN notes reviewed and old records reviewed Mode of arrival: ambulatory Limitations: no limitations History of Present Illness HPI Narrative: 34-year-old female presents to the [facility] with complaints of 2 days of sore throat, fevers. Onset (ago): day(s) (2) Related Data Home Medications ?Medication ?Instructions ?Recorded ?Confirmed ?Last Taken ?Type vits no.126-ferrous fum 1 tablet PO HS 12/20/23 08/22/24 07/05/24 History 28 mg iron-folic acid 800 mcg tablet (Classic ) docusate sodium 100 mg capsule 100 mg PO 2XW 07/05/24 08/22/24 07/05/24 History (Col-Rite) ergocalciferol (vitamin D2) 1,000 2,000 unit PO DAILY 07/05/24 08/22/24 07/05/24 History unit capsule Allergies Allergy/AdvReac Type Severity Reaction Status Date / Time bismuth subsalicylate (From AdvReac Mild other Verified 09/14/24 19:04 Pepto-Bismol) Review of Systems Review of Systems: All systems reviewed & are unremarkable except as noted in HPI and below Constitutional: Constitutional: Reports as per HPI and Reports fever(s) ENT: Reports as per HPI and Reports sore throat Cardiovascular: Cardiovascular: Reports no additional cardiovascular complaints, Denies chest pain and Denies dyspnea Respiratory: Respiratory: Reports no additional respiratory complaints, Denies chest congestion, Denies cough and Denies dyspnea Musculoskeletal: Musculoskeletal: Reports no additional musculoskeletal complaints Integumentary/Breasts: Skin/Breast: Reports system reviewed and no additional complaints, except as docu PMFSH Past Medical History Medical History Hemorrhoids Suppression of menses Encounter for initial insertion of intrauterine contraceptive device Surgical History Surgical History History of placement of ear tubes Family History Family History Father Testicular cancer Diabetes mellitus Depression Hypertension Grandparent Diabetes mellitus Cancer Social History Social History Smoking status: Never smoker Second hand tobacco smoke exposure: No Alcohol intake: never Substance use: never Substance use type: does not use Do You Feel Safe in your Home?: Yes Lack of Transportation: No Lack of Food: Never True Current Housing: I Have Housing Concerned About Future Housing: No Difficulty Paying Gas/Electric Bills: No Difficulty Paying for Meds: No Currently Unemployed: No Education: Master's Degree or Higher Difficulty w/ Childcare or Family Care: No Living arrangements: with family Occupation/Education: occupation 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 There is no relevant family history pertinent to the patient complaint. Exam Const: General: cooperative, healthy appearing, comfortable, no acute distress, well developed, alert and well nourished Nutritional Appearance: well nourished and obese Orientation/consciousness: patient oriented x3 Limitations: no limitations HENMT: Head: normal to inspection Ears: hearing grossly normal bilaterally, external ears normal, TM's normal bilaterally, EAC's normal, mastoids normal and no periauricular adenopathy Mouth: Yes Normal oral and palatal mucosa present, Yes lip normal, Yes tongue normal and Yes moist mucous membranes Throat: abnormal tonsil bilateral erythema, exudates and hypertrophy Eyes: General: appearance normal, both eyes and all related structures Alignment and Position: alignment normal Neck: Neck: normal visual inspection, full ROM, no lymphadenopathy and no meningeal signs Chest: Chest palpation & inspection: normal inspection of the chest Resp: Effort & Inspection: normal respiratory effort and able to speak in com plete sentences Cardio: Rate: regular rate Skin: General skin exam: normal color and no rashes or lesions noted Neuro: General: patient oriented x3, gait normal, moves all extremities and no meningeal signs Cognition (Neuro): normal cognition Speech: normal speech Gait exam (Neuro): Normal gait present Extrem: General: normal to inspection, full ROM, capillary refill normal and normal gait Psych: Appearance: grossly normal and well kempt Mental Status: mental status grossly normal Speech and movement: Normal speech and movement present and Clear speech present Affect: normal affect Attitude: cooperative Course Course Level of Care: Express Care Visit Vital Signs Vital signs: Vital Signs Temperature 99.6 F 09/14/24 18:56 Pulse Rate 138 H 09/14/24 18:56 Respiratory Rate 20 09/14/24 18:56 Blood Pressure 93/62 L 09/14/24 18:56 Pulse Oximetry 97 09/14/24 18:56 Oxygen Delivery Room Air 09/14/24 18:56 Temperature 99.6 F 09/14/24 18:56 Pulse Rate 138 H 09/14/24 18:56 Respiratory Rate 20 09/14/24 18:56 Blood Pressure 93/62 L 09/14/24 18:56 Pulse Oximetry 97 09/14/24 18:56 Oxygen Delivery Room Air 09/14/24 18:56 Reviewed MDM - URI/Sore Throat MDM Narrative Medical decision making narrative: Patient sitting comfortably in exam room. Nontoxic, vitals are stable. Patient reports that she normally has a lower blood pressure and higher heart rate at rest. Patient presents 2 day history of sore throat. Patient is strep positive. Patient is appropriate for outpatient treatment with close follow-up. Discharge instructions reviewed with patient, as well as provided in writing per nursing staff. The instructions also include specific and strict return/GO TO THE ER as well as f/u information. All questions have been answered, and the patient deny any further questions with discharge and discharge plan. Some parts of this dictation were generated by voice recognition software and may contain typographical and/or grammatical inaccuracies. Differential Diagnosis Differential diagnosis: Likely upper respiratory infection, otitis media, sinusitis, viral infection, bronchitis, influenza and pharyngitis Lab Data Labs: Lab Results 09/14/24 Range/Units 19:04 POC Grp A Strep Screen Positive (Negative) Reviewed Critical Care Time Critical Care Time Critical Care Time: No Discharge Plan Discharge Clinical Impression: Strep throat Patient Disposition: Home, Self-Care Condition: Stable Instructions: Antibiotic Form, Strep Throat (ED) Additional Instructions: After 24-48 hours on antibiotics, Throw the toothbrush away, start using a new one. Please be sure to wash bed linens especially pillow cases. Repeat once you finish the antibiotics. Do not share drinks. Take Motrin alternating with Tylenol for pain and fever alternating every 4 hours. Increase fluids, avoid caffeine. Give plenty of water, juice, Gatorade, Pedialyte, ice pops in Jell-O Follow up with Primary provider if not getting better this week For new or worsening symptoms go directly to the emergency room Patient Language: Guatemalan Prescriptions: New amoxicillin 875 mg tablet 875 mg PO Q12H Qty: 20 0RF No Action Classic 28 mg iron- 800 mcg tablet 1 tablet PO HS docusate sodium [Col-Rite] 100 mg capsule 100 mg PO 2XW Patient Comments: Takes on the days she takes the iron supplement ergocalciferol (vitamin D2) 1,000 unit capsule 2,000 unit PO DAILY Follow-up/Referrals: Claude,ALPA Fernandes [Primary Care Provider] - Stand Alone Forms: Work/School Release IP Time of Disposition: 19:06
--- OUTSIDE RECORDS SUMMARY | 2024-09-14 18:47 | XMS_ITS | Clinical Summary ---
Author Organization [facility] Address [address] [facility] [address] Phone Care Team Providers Care Yard Specialist Name Role Phone Unavailable Primary Care Provider Unavailabl e Allergies Active Allergy Reactions Criticality Noted Date Comments Bismuth Subsalicylate Other (see Comments) High 01/2017 Black hairy tongue Black hairy tongue Medications Contrave 8-90 MG TABLET SR 12 HR TAKE 2 TABLETS BY MOUTH IN THE MORNING AND 2 TABLETS AT NIGHT DIRECTED 1 Active fluticasone (Flovent HFA) 220 MCG/ACT AerosolIndicati ons:COVID-19 take 4 Puffs by inhalation 2 times daily. 12 g 1 Active Spacer/Aero-Hol ding Chambers (OptiChamber Mary) MiscIndications :COVID-19 Use as directed with inhaler. 1 Each 1 Active Social History Tobacco Use Types Packs/Day Years Used Date Smoking Tobacco: Never Smokeless Tobacco: Never Comments No Sex and Gender Information Value Date Recorded Sex Assigned at Not on file Legal Sex Female 2:09 PM CDT Gender Identity Not on file Sexual Orientation Not on file Last Filed Vital Signs Vital Sign Reading Time Taken Comments Blood Pressure 102/74 04/10/2021 3:20 PM CDT Pulse 98 04/10/2021 3:20 PM CDT Temperature 36.9 C (98.5 F) 04/10/2021 3:20 PM CDT Respiratory Rate 18 04/10/2021 3:20 PM CDT Oxygen Saturation 98% 04/10/2021 3:20 PM CDT Inhaled Oxygen Concentration - - Weight 89.8 kg (198 lb) 04/10/2021 3:20 PM CDT Height 165.1 cm (5' 5 ) 04/10/2021 3:20 PM CDT Body Mass Index 32.95 04/10/2021 3:20 PM CDT Plan of Treatment Health Maintenance Due Date Last Done Comments Hepatitis C Virus (HCV) Screening 1989 Hepatitis B Immunization (1 of 3 - 19+ 3-dose series) 2008 Influenza Immunization (#1) 02/26/202403/27, 05/04/2014, 03/24/2013, Additional history exists SARS-COV-2 Immunization ( season) 2024 11/20/2020 Respiratory Syncytial Virus (RSV) Immunization (Adult) (1 - 1-dose 75+ series) 2064 DTaP/Tdap/Td Immunization Discontinued 2018, 12/06/2016, 03/24/2013 TdaP Immunization Completed 01/07/2019, , 03/24/2013 Cervical Cancer Screening (CCS) Discontinued Pap Smear Discontinued 11/30/2019 HPV/Cotest Discontinued Meningococcal Immunization (ACWY) Aged Out No longer eligible based on patient's age to complete this topic Pneumococcal Immunization Combined Aged Out No longer eligible based on patient's age to complete this topic Rotavirus Immunization Aged Out No lo nger eligible based on patient's age to complete this topic Insurance
--- OUTSIDE RECORDS SUMMARY | 2024-09-14 18:47 | XMS_ITS | Encounter Summary ---
Author Organization [facility] Address [address] [place] [address] Care Team Providers Care Oncology Research Rn Name Role Phone Cristin Arce VICE PRESIDENT PLANNING Primary Care Provider [phone] Encounter Details Date Type Department Care Team (Late st Contact Info) Description 04/10/2021 Mark Medical Message Enc [facility] Medical [facility] Family Medicine - [place] [address] [place], [place] [address] Cristin Arce, KASSANDRA [address] [place] [address] RE: Question Social History Tobacco Use Types Packs/Day Years Used Date Smoking Tobacco: Never Smokeless Tobacco: Never Alcohol Use Standard Drinks/Week Comments Yes 0 (1 standard drink = 0.6 oz pur e alcohol) rare PHQ-2 Answer Date Recorded PHQ-2 Score - If the patient scores above 3, please move on to questions 3-9 2 12/10/2020 Comments No Sex and Gender Information Value Date Recorded Sex Assigned at Not on file Legal Sex Female 10:08 PM TIRE SHOP MECHANIC Gender Identity Not on file Sexual Orientation Not on file COVID-19 Exposure Response Date Recorded In the last month, have you been in contact with someone who was confirmed or suspected to have Coronavirus / COVID-19? No / Unsure 04/02/2021 1:57 PM CDT documented as of this encounter Plan of Treatment Not on file documented as of this encounter Visit Diagnoses Not on filedocumented in this encounter Additional Health Concerns Infection Onset Date Last Indicated Resolved Time COVID-19 Rule Out 04/22/2021 04/22/2021 04/22/2021 12:02 PM CDT COVID-19 Rule Out 05/12/2023 05/12/2023 05/12/2023 2:32 PM TIRE SHOP MECHANIC COVID-19 Rule Out 05/12/2023 05/12/2023 05/13/2023 5:23 PM TIRE SHOP MECHANIC Assessment Noted Time PHQ-9 Depression Total Score: 5 12/11/19 1:19 PM CDT documented as of this encounter Care Teams Oncology Research Rn Relationship Specialty Start Date End Date Cristin Arce NP [address] [place] [address] PCP - General NURSE PRACTITIONER 12/08/20 documented as of this encounter
--- OUTSIDE RECORDS SUMMARY | 2024-09-14 18:47 | XMS_ITS | Encounter Summary ---
Author Organization [facility] Address [address] [place] [address] Care Team Providers Care Joy Operator Helper Name Role Phone Cristin Arce GIZZARD PEELER Primary Care Provider [phone] Encounter Details Date Type Department Care Team (Late st Contact Info) Description 12/10/2020 Qwbcg Message Enc [facility] Medical Group Family Medicine - [place] [address] [facility] [place], [place] [address] Cristin Arce, KASSANDRA [address] [place] [address] [place] [address] follow up labs Social History Tobacco Use Types Packs/Day Years Used Date Smoking Tobacco: Never Smokeless Tobacco: Never Alcohol Use Standard Drinks/Week Comments Yes 0 (1 standard drink = 0.6 oz pur e alcohol) PHQ-2 Answer Date Recorded PHQ-2 Score - If the patient scores above 3, please move on to questions 3-9 2 12/10/2020 Comments No Sex and Gender Information Value Date Recorded Sex Assigned at Not on file Legal Sex Female 10:08 PM MONOGRAM OPERATOR Gender Identity Not on file Sexual Orientation Not on file COVID-19 Exposure Response Date Recorded In the last month, have you been in contact with someone who was confirmed or suspected to have Coronavirus / COVID-19? No / Unsure 12/10/2020 12:48 PM CDT documented as of this encounter Plan of Treatment Not on file documented as of this encounter Visit Diagnoses Not on filedocumented in this encounter Additional Health Concerns Infection Onset Date Last Indicated Resolved Time COVID-19 Rule Out 04/22/2021 04/22/2021 04/22/2021 12:02 PM CDT COVID-19 Rule Out 05/12/2023 05/12/2023 05/12/2023 2:32 PM MONOGRAM OPERATOR COVID-19 Rule Out 05/12/2023 05/12/2023 05/13/2023 5:23 PM MONOGRAM OPERATOR Assessment Noted Time PHQ-9 Depression Total Score: 5 12/11/19 1:19 PM CDT documented as of this encounter Care Teams Joy Operator Helper Relationship Specialty Start Date End Date Cristin Arce NP [address] [place] [address] PCP - General NURSE PRACTITIONER 12/08/20 documented as of this encounter
--- OUTSIDE RECORDS SUMMARY | 2024-09-14 18:47 | XMS_ITS | Clinical Summary ---
Author Organization [facility] Address [address] [place] [address] Care Team Providers Care Supervisor Major Appliance Assembly Name Role Phone Joce Nunez MD Unavailable [phone] Cristin Arce MD Primary Care Provider [phone] Allergies Active Allergy Reactions Criticality Noted Date Comments Bismuth Subsalicylate Other (See comments) High 01/2017 Black hairy tongue Black hairy tongue Black hairy tongue Medications FreeStyle Lite Strips strip 05/31/2022 Active prenat.vits,nilda ,jaw-waqq-uxmfo tablet Take 1 each by mouth daily Active naltrexone-bupr opion (Contrave) 8-90 mg tablet extended release TAKE 2 TABLETS BY MOUTH IN THE MORNING AND 2 TABLETS AT NIGHT DIRECTED 04/02/2021 Active freestyle 28 gauge lancets 04/28/2022 Activ e ibuprofen (ADVIL,MOTRIN) 600 mg tablet 06/14/2022 Activ e fluticasone propionate (FLOVENT HFA) 220 mcg/actuation inhaler Inhale 4 puffs 2 (two) times a day 04/10/2021 Active Active Problems Problem Noted Date Diagnosed Date Abnormal mammogram 07/02/2022 Mass of left breast 07/02/2022 Surgical History Surgery Date Site/Laterality Comments BREAST BIOPSY 07/13/2022 Left Family History Medical History Relation Name Comments Testicular cancer Father Relation Name Status Comments Father Social History Tobacco Use Types Packs/Day Years Used Date Smoking Tobacco: Never Smokeless Tobacco: Never Tobacco Cessation:Counseling Given: Not Answered Personal Safety Answer Date Recorded Getting School Help Needed Not on file 07/03 Comments Unknown Sex and Gender Information Value Date Recorded Sex Assigned at Not on file Legal Sex Female 12:57 PM SKILLED HELPER Gender Identity Not on file Sexual Orientation Not on file Obstetrics History Last Filed Vital Signs Vital Sign Reading Time Taken Comments Blood Pressure - - Pulse - - Temperature - - Respiratory Rate - - Oxygen Saturation - - Inhaled Oxygen Concentration - - Weight 87.5 kg (193 lb) 07/02/2022 9:07 AM SKILLED HELPER Height 165.1 cm (5' 5 ) 07/02/2022 9:07 AM SKILLED HELPER Body Mass Index 32.12 07/02/2022 9:07 AM SKILLED HELPER Plan of Treatment Health Maintenance Due Date Last Done Comments Cervical Cancer Screening 1989 Depression Screening 1989 Hepatitis C Screening 1989 Varicella Vaccines (1 of 2 - 13+ 2-dose series) 2002 Hepatitis B Screening 2007 Regular Well Visit/Exam 18-64 2007 Covid-19 Vaccine ( season) 2024 11/20/2020 Influenza Vaccine (#1) 2024 2, 04/12/2020, 04/12/2020, Additional history exists DTaP/Tdap/Td Vaccine (5 - Td or Tdap) 05/11/2032 05/11/2022, 01/07/2019, 12/06/2016, Additional history exists HPV Vaccines Aged Out No longer eligi ble based on patient's age to complete this topic Pneumococcal vaccine <65 Aged Out No longer eligible based on patient's age to complete this topic Insurance [facility] Care Teams Supervisor Major Appliance Assembly Relationship Specialty Start Date End Date Cristin Arce MD PCP - General Nurse Practitioner 06/16/22 Joce Nunez MD Consulting Physician Obstetrics and Gynecology 06/15/22
--- OUTSIDE RECORDS SUMMARY | 2024-09-14 18:47 | XMS_ITS | Encounter Summary ---
Author Organization [facility] Address [address] [place] [address] Care Team Providers Care Teacher Dramatics Name Role Phone Cristin Arce NP Primary Care Provider [phone] Encounter Details Date Type Department Care Team (Late st Contact Info) Description 03/05/2021 [employer] Performance Message Enc [facility] Medical [facility] Family Medicine - [place] [address] [facility] [address] [address] [place], [place] [address] Cristin Arce, KASSANDRA [address] [place] [address] RE: follow up on weight loss medication Social History Tobacco Use Types Packs/Day Years [...] on file Legal Sex Female 10:08 PM PROGRAMMER Gender Identity Not on file Sexual Orientation Not on file COVID-19 Exposure Response Date Recorded In the last month, have you been in contact with someone who was confirmed or suspected to have Coronavirus / COVID-19? No / Unsure 02/24/2021 2:23 PM CDT documented as of this encounter Plan of Treatment Not on file documented as of this encounter Visit Diagnoses Not on filedocumented in this encounter Additional Health Concerns Infection Onset Date Last Indicated Resolved Time COVID-19 Rule Out 04/22/2021 04/22/2021 04/22/2021 12:02 PM CDT COVID-19 Rule Out 05/12/2023 05/12/2023 05/12/2023 2:32 PM PROGRAMMER COVID-19 Rule Out 05/12/2023 05/12/2023 05/13/2023 5:23 PM PROGRAMMER Assessment Noted Time PHQ-9 Depression Total Score: 5 12/11/19 21 1:19 PM CDT documented as of this encounter Care Teams Teacher Dramatics Relationship Specialty Start Date End Date Cristin Arce NP [address] [place] [address] PCP - General NURSE PRACTITIONER 12/08/20 documented as of this encounter
--- OUTSIDE RECORDS SUMMARY | 2024-09-14 18:47 | XMS_ITS | Encounter Summary ---
Author Organization [facility] Address [address] [place] [address] Care Team Providers Care Electromyographic Technician Name Role Phone Cristin Arce INTERNATIONAL BANKER Primary Care Provider +1 -[phone] Encounter Details Date Type Department Care Team (Late st Contact Info) Description 02/18/2021 Group Commerce Message Enc [facility] Medical Group Family Medicine - [place] [address] [facility] [address] [place], [place] [address] Cristin Arce, KASSANDRA [address] [place] [address] [place] [address] RE: Question Social History Tobacco Use Types [...] on file Legal Sex Female 10:08 PM 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 No / Unsure 01/21/2021 11:42 AM CDT documented as of this encounter Plan of Treatment Not on file documented as of this encounter Visit Diagnoses Not on filedocumented in this encounter Additional Health Concerns Infection Onset Date Last Indicated Resolved Time COVID-19 Rule Out 04/22/2021 04/22/2021 04/22/2021 12:02 PM CDT COVID-19 Rule Out 05/12/2023 05/12/2023 05/12/2023 2:32 PM KNOCKOUT MACHINE OPERATOR COVID-19 Rule Out 05/12/2023 05/12/2023 05/13/2023 5:23 PM KNOCKOUT MACHINE OPERATOR Assessment Noted Time PHQ-9 Depression Total Score: 5 12/11/19 1:19 PM CDT documented as of this encounter Care Teams Electromyographic Technician Relationship Specialty Start Date End Date Cristin Arce NP [address] [place] [address] [place] [id number] PCP - General NURSE PRACTITIONER 12/08/20 documented as of this encounter
--- OUTSIDE RECORDS SUMMARY | 2024-09-14 18:47 | XMS_ITS | Encounter Summary ---
Author Organization [facility] Address [address] [place] [address] Care Team Providers Care Saturation Equipment Operator Name Role Phone Cristin Arce NP Primary Care Provider +1 [phone] Encounter Details Date Type Department Care Team (Late st Contact Info) Description 12/24/2020 NanoCompound Message Enc [facility] Medical Group Family Medicine - [place] [address] [facility] [address] [place], [place] [address] Cristin Arce, KASSANDRA [address] [place] [address] [place] [address] RE: Referral Request Social History Tobacco Use Types Packs/Day Years [...] on file Legal Sex Female 10:08 PM ENVIRONMENTAL STUDIES PROFESSOR Gender Identity Not on file Sexual Orientation [...] Rule Out 05/12/2023 05/12/2023 05/12/2023 2:32 PM ENVIRONMENTAL STUDIES PROFESSOR COVID-19 Rule Out 05/12/2023 05/12/2023 05/13/2023 5:23 PM ENVIRONMENTAL STUDIES PROFESSOR Assessment Noted Time PHQ-9 Depression Total Score: 5 12/11/19 1:19 PM CDT documented as of this encounter Care Teams Saturation Equipment Operator Relationship Specialty Start Date End Date Cristin Arce NP [address] [place] [address] [place] [address] PCP - General NURSE PRACTITIONER 12/08/20 documented as of this encounter
--- OUTSIDE RECORDS SUMMARY | 2024-09-14 18:47 | XMS_ITS | Clinical Summary ---
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 OPERATOR Gender Identity Not on file Sexual Orientation Not on file Last Filed Vital Signs Vital Sign Reading Time Taken Comments Blood Pressure 114/74 10/31/2015 7:40 AM CDT Pulse 80 10/31/2015 7:40 AM CDT Temperature 36.9 C (98.4 F) 10/31/2015 7:40 AM CDT Respiratory Rate - - Oxygen Saturation - - Inhaled Oxygen Concentration - - Weight 74.4 kg (164 lb) 10/31/2015 7:40 AM CDT Height 165.1 cm (5' 5 ) 10/31/2015 7:40 AM CDT Body Mass Index 27.29 10/31/2015 7:40 AM CDT Plan of Treatment Health Maintenance Due Date Last Done Comments DTAP/TDAP/TD VACCINES (1 - Tdap) 2008 HEPATITIS B VACCINES (1 of 3 - 19+ 3-dose series) 2008 PAP SMEAR 2019 INFLUENZA VACCINE (#1) 2024 HPV VACCINES Aged Out No longer eligi ble based on patient's age to complete this topic PNEUMOCOCCAL VACCINE 0-49 YEARS Aged Out No longer eligible based on patient's age to complete this topic
--- OUTSIDE RECORDS SUMMARY | 2024-09-14 18:47 | XMS_ITS | Encounter Summary ---
Author Organization [facility] Address [address] [place] [address] Care Team Providers Care Ict Quality Assurance Engineer Name Role Phone Cristin Arce PEN AND PENCIL REPAIRER Primary Care Provider [phone] [phone] Encounter Details Date Type Department Care Team (Late st Contact Info) Description 04/02/2021 ForceManager Message Enc [facility] Medical Group Family Medicine - [place] [address] [facility] [address] [place], [place] [address] Cristin Arce, KASSANDRA [address] [place] [address] [place], [place] [address] RE: follow up on Contrave Social History Tobacco Use Types Packs/Day Years [...] on file Legal Sex Female 10:08 PM TOP FRAME MAKER Gender Identity Not on file Sexual Orientation [...] Rule Out 05/12/2023 05/12/2023 05/12/2023 2:32 PM TOP FRAME MAKER COVID-19 Rule Out 05/12/2023 05/12/2023 05/13/2023 5:23 PM TOP FRAME MAKER Assessment Noted Time PHQ-9 Depression Total Score: 5 12/11/19 21 1:19 PM CDT documented as of this encounter Care Teams Ict Quality Assurance Engineer Relationship Specialty Start Date End Date Cristin Arce NP [address] [place] [address] PCP - General NURSE PRACTITIONER 12/08/20 documented as of this encounter
--- OUTSIDE RECORDS SUMMARY | 2024-09-14 18:47 | XMS_ITS | Encounter Summary ---
Author Organization [facility] Address [address] [place] [address] Care Team Providers Care Business Services Clerk Name Role Phone Cristin Arce COTTAGE ATTENDANT Primary Care Provider +1 [phone] Encounter Details Date Type Department Care Team (Late st Contact Info) Description 12/10/2020 Cobase Message Enc [facility] Medical Group Family Medicine - [place] [address] [facility] [address] [place], [place] [address] Cristin Arce, KASSANDRA [address] [place] [address] [place] [address] RE: Test Results Social History Tobacco Use Types Packs/Day Years [...] on file Legal Sex Female 10:08 PM LANG INTERPRETER Gender Identity Not on file Sexual Orientation [...] Rule Out 05/12/2023 05/12/2023 05/12/2023 2:32 PM LANG INTERPRETER COVID-19 Rule Out 05/12/2023 05/12/2023 05/13/2023 5:23 PM LANG INTERPRETER Assessment Noted Time PHQ-9 Depression Total Score: 5 12/11/19 1:19 PM CDT documented as of this encounter Care Teams Business Services Clerk Relationship Specialty Start Date End Date Cristin Arce NP [address] [place] [address] [place] [id number] PCP - General NURSE PRACTITIONER 12/08/20 documented as of this encounter
--- OUTSIDE RECORDS SUMMARY | 2024-09-14 18:47 | XMS_ITS | Clinical Summary ---
Author Organization [facility] Address [address] [place] [address] Care Team Providers Care Farm Product Purchaser Name Role Phone Cristin Arce NP Primary Care Provider +1 [phone] Allergies Active Allergy Reactions Criticality Noted Date Comments Bismuth Subsalicylate Other (see comment) High 08/04 Black hairy tongue Medications Levonorgestrel (MIRENA, 52 MG, IU) Active Vit-DSS-Fe Cbn-FA ( ADVANTAGE OR) Take 1 each by mouth daily. Active clobetasol (TEMOVATE) 0.05 % ointment 09/06/2022 Active albuterol sulfate HFA 108 (90 Base) MCG/ACT inhalerIndicatio ns:Acute cough Inhale 2 puffs into the lungs every 6 (six) hours as needed for Wheezing. 18 g 05/12/2023 Active Active Problems Problem Noted Date Diagnosed Date Obesity (BMI 30-39.9) 02/24/2021 Tachycardia 12/10/2020 Resolved Problems Problem Noted Date Diagnosed Date Resolved Date Diet controlled gestational diabetes mellitus (GDM) in third trimester ([facility]) 01/07/201912/10 Encounters Date Type Department Care Team Description 06/28/2024 Scan MG HEALTH INFO SRVCS Scanned, Doc Med Group Ultrasound (SCAN) from Last 3 Months Immunizations Name Administration Dates Next Due Influenza Adult (Generic) 04/12/2020,05/04/2014, 03/24/2013,04/26/2012 Tdap (Generic) 01/07/2019,12/06/2016,03/24/2013 Family History Medical History Relation Comments Cancer Father Diabetes Father Hypertension Father Diabetes Maternal Grandfather Hypertension Maternal Grandfather Heart Attack Paternal Grandmother Relation Status Comments Father Alive Maternal Grandfather Mother Alive Paternal Grandmother Social History Tobacco Use Types Packs/Day Years Used Date Smoking Tobacco: Never Passive Smoke Exposure: Never Smokeless Tobacco: Never Tobacco Cessation:Counseling Given: No Alcohol Use Standard Drinks/Week Comments Yes 0 (1 standard drink = 0.6 oz pur e alcohol) rare PHQ-2 Answer Date Recorded Patient Health Questionnaire-2 Score 0 11/15/2022 Comments No Sex and Gender Information Value Date Recorded Sex Assigned at Not on file Legal Sex Female 10:08 PM KNOT SAW OPERATOR Gender Identity Not on file Sexual Orientation Not on file Last Filed Vital Signs Vital Sign Reading Time Taken Comments Blood Pressure 105/72 05/12/2023 2:07 PM KNOT SAW OPERATOR Pulse 94 05/12/2023 2:07 PM KNOT SAW OPERATOR Temperature 36.9 C (98.4 F) 05/12/2023 2:07 PM KNOT SAW OPERATOR Respiratory Rate 22 05/12/2023 2:07 PM KNOT SAW OPERATOR Oxygen Saturation 97% 05/12/2023 2:07 PM KNOT SAW OPERATOR Inhaled Oxygen Concentration - - Weight 98 kg (216 lb) 05/12/2023 2:07 PM KNOT SAW OPERATOR Height 165.1 cm (5' 5 ) 05/12/2023 2:07 PM KNOT SAW OPERATOR Body Mass Index 35.94 05/12/2023 2:07 PM KNOT SAW OPERATOR Plan of Treatment Health Maintenance Due Date Last Done Comments Hepatitis C 2007 Hepatitis B Vaccines (1 of 3 - 19+ 3-dose series) 2008 Annual Physical 12/10/2021 12/10/2020 Cervical Cancer Screening Pap Smear (Age 30 to 64) Every 3 Years 11/29/2022 11/30/2019 COVID-19 Vaccine ( season) 2024 11/20/2020 Influenza Adult (#1) 2024 04/12/2022, 04/12/2020, 05/04/2014, Additional history exists PHQ-2 (Physician Po[place]) 06/27/2024 11/15/2022 Cervical Cancer Screening Pap with HPV Testing (Age 30 to 64) Every 5 Years 11/29/2024 11/30/2019 Cervical Cancer Screening with HPV 11/29/2024 DTaP, Tdap and Td Vaccines (5 - Td or Tdap) 05/11/2032 05/11/2022, 01/07/2019, 12/06/2016, Additional history exists HPV Vaccines Aged Out No longer eligi ble based on patient's age to complete this topic Meningococcal B Vaccine Aged Out No l onger eligible based on patient's age to complete this topic Meningococcal Vaccine Aged Out No cristo ra eligible based on patient's age to complete this topic Pneumococcal Vaccine: Pediatrics (0 to 5 Years) and At-Risk Patients (6 to 64 Years) Aged Out No longer eligible based on patient's age to complete this topic RSV Immunizations Under 20 Months Aged Out No longer eligible based on patient's age to complete this topic Procedures Procedure Name Priority Date/Time Associated Diagnosis Comments ULTRASOUND GENERIC (SCAN ORDER) 06/28/2024 from Last 3 Months Results * ULTRASOUND GENERIC (SCAN ORDER) (06/28/2024) Anatomical Region Laterality Modality Other 06/28/2024 us Doc Med Group Scanned SCANNING Final Resu lt from Last [address] [place] [address] [facility] Care Teams Farm Product Purchaser Relationship Specialty Start Date End Date Cristin Arce NP [address] [place] [address] [place] [address] PCP - General NURSE PRACTITIONER 12/08/20
--- OUTSIDE RECORDS SUMMARY | 2024-09-14 18:47 | XMS_ITS | Referral Summary ---
Author Organization [facility] Address [address] [place] [address] Care Team Providers Care Benzene Still Utility Operator Name Role Phone Joce Nunez MD Unavailable Cristin Arce MD Primary Care Provider +1- [phone] Allergies Active Allergy Reactions Criticality Noted Date Comments Bismuth Subsalicylate Other (See comments) High 01/2017 Black hairy tongue Black hairy tongue Black hairy tongue Medications FreeStyle Lite Strips strip 05/31/2022 Active prenat.vits,nilda ,nmu-wker-rdsoz tablet Take 1 each by mouth daily [...] mammogram 07/02/2022 Mass of left breast 07/02/2022 Social History Tobacco Use Types Packs/Day Years Used Date Smoking Tobacco: Never Smokeless Tobacco: Never Tobacco Cessation:Counseling Given: Not Answered Personal Safety Answer Date Recorded Getting School Help Needed Not on file 07/03 Comments Unknown Sex and Gender Information Value Date Recorded Sex Assigned at Not on file Legal Sex Female 12:57 PM HATCH BOSS Gender Identity Not on file Sexual Orientation Not on file Last Filed Vital Signs Vital Sign Reading Time Taken Comments Blood Pressure - - Pulse - - Temperature - - Respiratory Rate - - Oxygen Saturation - - Inhaled Oxygen Concentration - - Weight 87.5 kg (193 lb) 07/02/2022 9:07 AM HATCH BOSS Height 165.1 cm (5' 5 ) 07/02/2022 9:07 AM HATCH BOSS Body Mass Index 32.12 07/02/2022 9:07 AM HATCH BOSS Plan of Treatment Not on file Insurance [facility] Care Teams Benzene Still Utility Operator Relationship Specialty Start Date End Date Cristin Arce MD PCP - General Nurse Practitioner 06/16/22 Joce Nunez MD Consulting Physician Obstetrics and Gynecology 06/15/22
--- OUTSIDE RECORDS SUMMARY | 2024-09-14 18:47 | XMS_ITS | Encounter Summary ---
Author Organization [facility] Address [address] [place] [address] Care Team Providers Care Printed Circuit Boards Router Name Role Phone Cristin Arce ASPARAGUS CUTTER Primary Care Provider +1 -[phone] Encounter Details Date Type Department Care Team (Late st Contact Info) Description 03/06/2021 Raise Message Enc [facility] Medical Group Family Medicine - [place] [address] [facility] [address] [place], [place] [address] Cristin Arce, KASSANDRA [address] [place] [address] [place] [address] follow up Social History Tobacco Use Types Packs/Day Years [...] on file Legal Sex Female 10:08 PM LEAD MAINTENANCE TECHNICIAN Gender Identity Not on file Sexual Orientation [...] Rule Out 05/12/2023 05/12/2023 05/12/2023 2:32 PM LEAD MAINTENANCE TECHNICIAN COVID-19 Rule Out 05/12/2023 05/12/2023 05/13/2023 5:23 PM LEAD MAINTENANCE TECHNICIAN Assessment Noted Time PHQ-9 Depression Total Score: 5 12/11/19 1:19 PM CDT documented as of this encounter Care Teams Printed Circuit Boards Router Relationship Specialty Start Date End Date Cristin Arce NP [address] [place] [id number] PCP - General NURSE PRACTITIONER 12/08/20 documented as of this encounter
--- OUTSIDE RECORDS SUMMARY | 2024-09-14 18:47 | XMS_ITS | Encounter Summary ---
Author Organization [facility] Address [address] [place] [address] Care Team Providers Care Serology Technician Name Role Phone Cristin Arce SAP PLANT MAINTENANCE CONSULTANT Primary Care Provider +1 -[phone] Encounter Details Date Type Department Care Team (Late st Contact Info) Description 12/17/2020 SuddenValues Message Enc [facility] Medical Group Family Medicine - [place] [address] [facility] [address] [place], [place] [address] Cristin Arce, KASSANDRA [address] [place] [address] [place] [address] Follow Up/Update Social History Tobacco Use Types Packs/Day Years [...] on file Legal Sex Female 10:08 PM BEE BREEDER Gender Identity Not on file Sexual Orientation [...] Rule Out 05/12/2023 05/12/2023 05/12/2023 2:32 PM BEE BREEDER COVID-19 Rule Out 05/12/2023 05/12/2023 05/13/2023 5:23 PM BEE BREEDER Assessment Noted Time PHQ-9 Depression Total Score: 5 12/11/19 1:19 PM CDT documented as of this encounter Care Teams Serology Technician Relationship Specialty Start Date End Date Cristin Arce NP [address] [place] [id number] PCP - General NURSE PRACTITIONER 12/08/20 documented as of this encounter
[2024-09-14 18:56] VITALS: BP 93/62; PULSE 138; RESP 20; TEMP 37.6; O2SAT 97
[2024-09-14 19:06] LABS: EDSTREPNEGPOS1 Positive (Negative)
== END 2024-09-14 19:08 | disposition home or self-care (01) ==
PROVIDERS: Emergency Provider Nurse Practitioner; PCP Nurse Practitioner
DX: J02.0 Streptococcal pharyngitis (principal)
CPT/HCPCS: 87880; 99213; G0463

== ENCOUNTER 2024-09-30 08:41 | Emergency (ER) | payer OTHER, SELFPAY ==
--- NOTE | 2024-09-30 08:43 | ED_ITS ---
HPI - URI/Sore Throat General Chief Complaint: Upper Respiratory Infection Stated Complaint: strep Time Seen by Provider: 09/30/24 08:42 Source: patient Mode of arrival: ambulatory Limitations: no limitations History of Present Illness HPI Narrative: Irina is a 34-year-old female patient presenting to the clinic today with complaints of a sore throat. She was seen back on September 14 and tested positive/diagnosed with strep. Was given a 10 day course of amoxicillin. States her symptoms of fever and sore throat restarted yesterday. Has taken ibuprofen this morning for fever. Is currently . Heart rate is elevated in the clinic today at 1:38 a.m.. Patient reports that this is normal for when she is sick she always gets a high heart rate and lower blood pressure. Temperature in the clinic was 36.3? C. She denies any chest pain, shortness of breath, dizziness, or feeling weak. Related Data Home Medications ?Medication ?Instructions ?Recorded ?Confirmed ?Last Taken ?Type vits no.126-ferrous fum 1 tablet PO HS 12/20/23 08/22/24 07/05/24 History 28 mg iron-folic acid 800 mcg tablet (Classic ) docusate sodium 100 mg capsule 100 mg PO 2XW 07/05/24 08/22/24 07/05/24 History (Col-Rite) ergocalciferol (vitamin D2) 1,000 2,000 unit PO DAILY 07/05/24 08/22/24 07/05/24 History unit capsule Allergies Allergy/AdvReac Type Severity Reaction Status Date / Time bismuth subsalicylate (From AdvReac Mild other Verified 09/30/24 08:45 Pepto-Bismol) Review of Systems Review of Systems: Pertinent positives per HPI. Patient denies any rash, headache, visual changes, dizziness, cough, shortness of breath, chest pain, palpitations, nausea, vomiting, diarrhea, constipation, abdominal pain, or any urinary issues. [facility] Past Medical History Medical History Hemorrhoids Suppression of menses Encounter for initial insertion of intrauterine contraceptive device Surgical History Surgical History History of placement of ear tubes Family History Family History Father Testicular cancer Diabetes mellitus Depression Hypertension Grandparent Diabetes mellitus Cancer Social History Social History Smoking status: Never smoker Second hand tobacco smoke exposure: No Alcohol intake: never Substance use: never Substance use type: does not use Do You Feel Safe in your Home?: Yes Lack of Transportation: No Lack of Food: Never True Current Housing: I Have Housing Concerned About Future Housing: No Difficulty Paying Gas/Electric Bills: No Difficulty Paying for Meds: No Currently Unemployed: No Education: Master's Degree or Higher Difficulty w/ Childcare or Family Care: No Living arrangements: with family Occupation/Education: occupation 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 There is no relevant family history pertinent to the patient complaint. Exam Narrative: General: Well-developed, well nourished, in no apparent distress Head: Normocephalic, atraumatic Eyes: Pupils equally round and reactive to light bilaterally, EOM intact, sclera and conjunctive clear, no discharge, lids normal Ears: TMs intact and clear, ear canals clear, no drainage, grossly hearing normal. Nose: Nares patent, no discharge, no inflammation, no sinus tenderness. Mouth: Oral pharynx red with bilateral tonsillar enlargement without lesions or masses, good dentition, MMM. Neck: Supple, trachea midline, enlargement of anterior cervical nodes, no thyroid masses or goiter palpable. Cardio: Regular rate and rhythm, s1 and s2 normal, no murmur appreciated. Resp: Clear to auscultation bilaterally, no rhonchi, rales, wheezing or rubs Course Course Emergency Course: Portions of this record may have been created with voice recognition software. Level of Care: Express Care Visit Vital Signs Vital signs: Vital Signs Temperature 36.3 C L 09/30/24 08:52 Pulse Rate 134 H 09/30/24 08:52 Respiratory Rate 18 09/30/24 08:52 Blood Pressure 116/70 09/30/24 08:52 Pulse Oximetry 97 09/30/24 08:52 Oxygen Delivery Room Air 09/30/24 08:52 Temperature 36.3 C L 09/30/24 08:52 Pulse Rate 134 H 09/30/24 08:52 Respiratory Rate 18 09/30/24 08:52 Blood Pressure 116/70 09/30/24 08:52 Pulse Oximetry 97 09/30/24 08:52 Oxygen Delivery Room Air 09/30/24 08:52 Vital signs reviewed MDM - URI/Sore Throat MDM Narrative Medical decision making narrative: At the time of visit patient is resting comfortably on the exam table. Patient appears to be nontoxic. Labs: Strep test was performed and positive in the clinic today Plan: Patient has strep pharyngitis. Prescription for Augmentin was sent to the pharmacy as patient recently had amoxicillin. Supportive measures were discussed with the patient and they voiced understanding discharge instructions and agrees to treatment plan. Return precautions reviewed Differential Diagnosis Differential diagnosis: Likely upper respiratory infection, otitis media, sinusitis, viral infection, bronchitis, influenza, pharyngitis and other (COVID) Lab Data Labs: Lab Results 09/30/24 Range/Units 08:56 POC Grp A Strep Screen Positive (Negative) Discharge Plan Discharge Clinical Impression: Strep pharyngitis Patient Disposition: Home, Self-Care Condition: Stable Instructions: Antibiotic Form, Strep Throat (ED) Additional Instructions: Strep test was positive in the clinic today. Change your toothbrush in 24 hours after initiation of the antibiotics Take prescription medications only as prescribed-Augmentin Increase fluids and stay well hydrated Tylenol/motrin for pain/fever Flonase and OTC antihistamines as directed Vicks vapor rub to open sinuses Sinus rinses for congestion Cepacol spray, cough drops, throat lozenges, warm tea with honey/lemon, gargle salt water to soothe throat BRAT diet for diarrhea Clear liquids x 24 hours then advance as tolerated for nausea/vomiting Go to the ED if you develop a worsening in your condition- high fever not controlled by Tylenol or Motrin, dehydration, weakness, lethargy, shortness of breath, or chest pain. Follow up with your PCP in 3-5 days if symptoms persist. Patient Language: Filipino Prescriptions: New amoxicillin-pot clavulanate 875-125 mg tablet 1 tablet PO Q12H 10 Days Qty: 20 0RF No Action Classic 28 mg iron- 800 mcg tablet 1 tablet PO HS docusate sodium [Col-Rite] 100 mg capsule 100 mg PO 2XW Patient Comments: Takes on the days she takes the iron supplement ergocalciferol (vitamin D2) 1,000 unit capsule 2,000 unit PO DAILY Follow-up/Referrals: Claude,ALPA Fernandes [Primary Care Provider] - Time of Disposition: 08:57 Quality NIHSS Nursing Documentation ED NIHSS nursing documentation: reviewed/agree
--- OUTSIDE RECORDS SUMMARY | 2024-09-30 08:43 | XMS_ITS | Encounter Summary ---
Author Organization [facility] Address [address] [place] [address] Care Team Providers Care Cement Tester Assistant Name Role Phone Cristin Arce MEDIA RELATIONS INTERN Primary Care Provider +1 -[phone] Encounter Details Date Type Department Care Team (Late st Contact Info) Description 04/10/2021 Biletu Message Enc [facility] Medical Group Family Medicine - [place] [address] [facility] [address] [place], [place] [address] Cristin Arce, KASSANDRA [address] [place] [address] [place] [address] RE: Question Social History Tobacco Use Types [...] on file Legal Sex Female 10:08 PM COMMUNITY DEVELOPMENT TECHNICIAN Gender Identity Not on file Sexual [...] Rule Out 05/12/2023 05/12/2023 05/12/2023 2:32 PM COMMUNITY DEVELOPMENT TECHNICIAN COVID-19 Rule Out 05/12/2023 05/12/2023 05/13/2023 5:23 PM COMMUNITY DEVELOPMENT TECHNICIAN Assessment Noted Time PHQ-9 Depression Total Score: 5 12/11/19 1:19 PM CDT documented as of this encounter Care Teams Cement Tester Assistant Relationship Specialty Start Date End Date Cristin Arce NP [address] [place] [id number] PCP - General NURSE PRACTITIONER 12/08/20 documented as of this encounter
--- OUTSIDE RECORDS SUMMARY | 2024-09-30 08:43 | XMS_ITS | Encounter Summary ---
Author Organization [facility] Address [address] [place] [address] Care Team Providers Care Journeyman Powerhouse Operator Name Role Phone Cristin Arce CARRIAGE RIDER Primary Care Provider +1 -[phone] Encounter Details Date Type Department Care Team (Late st Contact Info) Description 12/17/2020 Nousco Message Enc [facility] Medical Group Family Medicine - [place] [address] [facility] [address] [place], [place] [address] Cristin Arce, KASSANDRA [address] [place] [address] [place] [address] Follow Up/Update Social History Tobacco Use Types [...] on file Legal Sex Female 10:08 PM INTERIOR DECORATOR PAPERHANGING Gender Identity Not on file Sexual Orientation [...] Rule Out 05/12/2023 05/12/2023 05/12/2023 2:32 PM INTERIOR DECORATOR PAPERHANGING COVID-19 Rule Out 05/12/2023 05/12/2023 05/13/2023 5:23 PM INTERIOR DECORATOR PAPERHANGING Assessment Noted Time PHQ-9 Depression Total Score: 5 12/11/19 1:19 PM CDT documented as of this encounter Care Teams Journeyman Powerhouse Operator Relationship Specialty Start Date End Date Cristin Arce NP [address] [place] [address] [place] [address] PCP - General NURSE PRACTITIONER 12/08/20 documented as of this encounter
--- OUTSIDE RECORDS SUMMARY | 2024-09-30 08:43 | XMS_ITS | Clinical Summary ---
Author Organization [facility] Address [address] [place] [address] Care Team Providers Care Plant Tender Name Role Phone Cristin Arce NP Primary Care Provider +1 -[phone] Allergies Active Allergy Reactions Criticality Noted Date [...] gestational diabetes mellitus (GDM) in third trimester ([facility]) 01/07/201912/10 Encounters Date Type Department Care Team Description 09/14/2024 Scan MG HEALTH INFO SRVCS Scanned, Doc Med Group from Last 3 Months Immunizations Name Administration [...] on file Legal Sex Female 10:08 PM CHIPPER Gender Identity Not on file Sexual Orientation Not on file Last Filed Vital Signs Vital Sign Reading Time Taken Comments Blood Pressure 105/72 05/12/2023 2:07 PM CHIPPER Pulse 94 05/12/2023 2:07 PM CHIPPER Temperature 36.9 C (98.4 F) 05/12/2023 2:07 PM CHIPPER Respiratory Rate 22 05/12/2023 2:07 PM CHIPPER Oxygen Saturation 97% 05/12/2023 2:07 PM CHIPPER Inhaled Oxygen Concentration - - Weight 98 kg (216 lb) 05/12/2023 2:07 PM CHIPPER Height 165.1 cm (5' 5 ) 05/12/2023 2:07 PM CHIPPER Body Mass Index 35.94 05/12/2023 2:07 PM CHIPPER Plan of Treatment Health Maintenance Due Date Last Done Comments Hepatitis C 2007 Hepatitis B Vaccines (1 of 3 - 19+ 3-dose series) 2008 Annual Physical 12/10/2021 12/10/2020 Cervical Cancer Screening Pap Smear (Age 30 to 64) Every 3 Years 11/29/2022 11/30/2019 COVID-19 Vaccine ( season) 2024 11/20/2020 PHQ-2 (Physician Assaria) 06/27/2024 11/15/2022 Cervical Cancer Screening Pap with [...] patient's age to complete this topic Insurance [id number] [facility] Care Teams Plant Tender Relationship Specialty Start Date End Date Cristin Arce NP [address] [place] [address] [place] [id number] PCP - General NURSE PRACTITIONER 12/08/20
--- OUTSIDE RECORDS SUMMARY | 2024-09-30 08:43 | XMS_ITS | Clinical Summary ---
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
--- OUTSIDE RECORDS SUMMARY | 2024-09-30 08:43 | XMS_ITS | Encounter Summary ---
Author Organization [facility] Address [address] [place] [address] Care Team Providers Care Cotton Broker Name Role Phone Cristin Arce ORTHOPEDIC RADIOLOGIC TECHNOLOGIST Primary Care Provider [phone] Encounter Details Date Type Department Care Team (Late st Contact Info) Description 03/06/2021 [place] Message Enc [facility] Medical Group Family Medicine - [place] [address] [facility] [address] [place], [place] [address] Cristin Arce, KASSANDRA [address] [place] [address] follow up Social History Tobacco Use Types [...] on file Legal Sex Female 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
--- OUTSIDE RECORDS SUMMARY | 2024-09-30 08:43 | XMS_ITS | Clinical Summary ---
Author Organization [facility] Address [address] [place] [address] Phone Care Team Providers Care Nonprofit Financial Controller Name Role Phone Unavailable Primary Care Provider [...]
--- OUTSIDE RECORDS SUMMARY | 2024-09-30 08:43 | XMS_ITS | Encounter Summary ---
Author Organization [facility] Address [address] [place] [address] Care Team Providers Care Neon Tube Pumper Name Role Phone Cristin Arce BUSINESS SERVICES INTERN Primary Care Provider [phone] Encounter Details Date Type Department Care Team (Late st Contact Info) Description 12/10/2020 [place] Message Enc [facility] Medical Group Family Medicine - [place] [address] [facility] [address] [place], [place] [address] Cristin Arce, KASSANDRA [address] [place] [address] [place] [address] follow up labs Social History Tobacco Use [...] on file Legal Sex Female 10:08 PM EDITOR INDEX Gender Identity Not on file Sexual Orientation [...] Rule Out 05/12/2023 05/12/2023 05/12/2023 2:32 PM EDITOR INDEX COVID-19 Rule Out 05/12/2023 05/12/2023 05/13/2023 5:23 PM EDITOR INDEX Assessment Noted Time PHQ-9 Depression Total Score: 5 12/11/19 1:19 PM CDT documented as of this encounter Care Teams Neon Tube Pumper Relationship Specialty Start Date End Date Cristin Arce NP [address] [place] [address] PCP - General NURSE PRACTITIONER 12/08/20 documented as of this encounter
--- OUTSIDE RECORDS SUMMARY | 2024-09-30 08:43 | XMS_ITS | Encounter Summary ---
Author Organization 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
--- OUTSIDE RECORDS SUMMARY | 2024-09-30 08:43 | XMS_ITS | Encounter Summary ---
Author Organization 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
--- OUTSIDE RECORDS SUMMARY | 2024-09-30 08:43 | XMS_ITS | Referral Summary ---
Author Organization [facility] Address [address] [place] [address] Care Team Providers Care Electrical Fitter Name Role Phone Joce Nunez MD Unavailable [phone] Cristin Arce MD Primary Care Provider [phone] Allergies Active Allergy Reactions Criticality Noted Date Comments Bismuth Subsalicylate Other (See comments) High 01/2017 Black hairy tongue Black hairy tongue Black hairy tongue Medications FreeStyle Lite Strips strip 05/31/2022 Active prenat.vits,nilda ,qlj-voxu-unwin tablet Take 1 each by mouth daily [...] on file Legal Sex Female 12:57 PM OYSTER CULLER Gender Identity Not on file Sexual Orientation Not on file Last Filed Vital Signs Vital Sign Reading Time Taken Comments Blood Pressure - - Pulse - - Temperature - - Respiratory Rate - - Oxygen Saturation - - Inhaled Oxygen Concentration - - Weight 87.5 kg (193 lb) 07/02/2022 9:07 AM OYSTER CULLER Height 165.1 cm (5' 5 ) 07/02/2022 9:07 AM OYSTER CULLER Body Mass Index 32.12 07/02/2022 9:07 AM OYSTER CULLER Plan of Treatment Not on file Insurance [facility] CLAIMS [facility] CLAIMS Care Teams Electrical Fitter Relationship Specialty Start Date End Date Cristin Arce MD PCP - General Nurse Practitioner 06/16/22 Joce Nunez MD Consulting Physician Obstetrics and Gynecology 06/15/22
--- OUTSIDE RECORDS SUMMARY | 2024-09-30 08:43 | XMS_ITS | Encounter Summary ---
Author Organization [facility] Address [address] [place] [address] Care Team Providers Care Industrial Truck Operator Name Role Phone Cristin Arce PLANT SECURITY GUARD Primary Care Provider [phone] Encounter Details Date Type Department Care Team (Late st Contact Info) Description 12/10/2020 [employer] Message Enc [facility] Medical Group Family Medicine - [place] [address] [facility] [address] [place], [place] [address] Cristin Arce, KASSANDRA [address] [place] [address] [place] [address] RE: Test Results Social History Tobacco Use [...] on file Legal Sex Female 10:08 PM CAFE ASSISTANT Gender Identity Not on file Sexual [...] Rule Out 05/12/2023 05/12/2023 05/12/2023 2:32 PM CAFE ASSISTANT COVID-19 Rule Out 05/12/2023 05/12/2023 05/13/2023 5:23 PM CAFE ASSISTANT Assessment Noted Time PHQ-9 Depression Total Score: 5 12/11/19 1:19 PM CDT documented as of this encounter Care Teams Industrial Truck Operator Relationship Specialty Start Date End Date Cristin Arce NP [address] [place] [address] PCP - General NURSE PRACTITIONER 12/08/20 documented as of this encounter
--- OUTSIDE RECORDS SUMMARY | 2024-09-30 08:43 | XMS_ITS | Encounter Summary ---
Author Organization [facility] Address [address] [place] [address] Care Team Providers Care Community Service Officer Coordinator Name Role Phone Cristin Arce ENTERPRISE APPLICATION ANALYST Primary Care Provider [phone] Encounter Details Date Type Department Care Team (Late st Contact Info) Description 04/02/2021 [employer] Message Enc [facility] Medical Group Family Medicine - [place] [address] [facility] [address] [place], [place] [address] Cristin Arce, KASSANDRA [address] [place] [address] [place], [place] [address] RE: follow up on Contrave Social History [...] on file Legal Sex Female 10: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
--- OUTSIDE RECORDS SUMMARY | 2024-09-30 08:43 | XMS_ITS | Encounter Summary ---
Author Organization [facility] Address [address] [place] [address] Care Team Providers Care Mutual Fund Analyst Name Role Phone Cristin Arce NP Primary Care Provider [phone] Encounter Details Date Type Department Care Team (Late st Contact Info) Description 03/05/2021 [place] Message Enc [facility] Medical Group Family Medicine - [place] [address] [facility] [address] [place], [place] [address] Cristin Arce, KASSANDRA [address] [place] [address] RE: follow up on weight loss medication [...] on file Legal Sex Female 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
--- OUTSIDE RECORDS SUMMARY | 2024-09-30 08:43 | XMS_ITS | Clinical Summary ---
Author Organization [facility] Address [address] [place] [address] Care Team Providers Care Solo Musician Name Role Phone Joce Nunez MD Unavailable [phone] Cristin Arce MD Primary Care Provider [phone] Allergies Active Allergy Reactions Criticality Noted Date Comments Bismuth Subsalicylate Other (See comments) High 01/2017 Black hairy tongue Black hairy tongue Black hairy tongue Medications FreeStyle Lite Strips strip 05/31/2022 Active prenat.vits,nilda ,qmi-kunr-zoxxy tablet Take 1 each by mouth daily [...] on file Legal Sex Female 12:57 PM MACHINIST HELPER MARINE Gender Identity Not on file Sexual Orientation Not on file Obstetrics History Last Filed Vital Signs Vital Sign [place] Time Taken Comments Blood Pressure - - Pulse - - Temperature - - Respiratory Rate - - Oxygen Saturation - - Inhaled Oxygen Concentration - - Weight 87.5 kg (193 lb) 07/02/2022 9:07 AM MACHINIST HELPER MARINE Height 165.1 cm (5' 5 ) 07/02/2022 9:07 AM MACHINIST HELPER MARINE Body Mass Index 32.12 07/02/2022 9:07 AM MACHINIST HELPER MARINE Plan of Treatment Health Maintenance Due Date [...] patient's age to complete this topic Insurance [facility] CLAIMS [facility] CLAIMS [facility] Address: [place] [id number] [place] [address] Care Teams Solo Musician Relationship Specialty Start Date End Date Cristin Arce MD PCP - General Nurse Practitioner 06/16/22 Joce Nunez MD Consulting Physician Obstetrics and Gynecology 06/15/22
[2024-09-30 08:52] VITALS: BP 116/70; PULSE 134; RESP 18; TEMP 36.3; O2SAT 97
[2024-09-30 08:58] LABS: EDSTREPNEGPOS1 Positive (Negative)
[2024-09-30 09:02] LABS: EDSTREPNEGPOS1 Negative (Negative)
== END 2024-09-30 08:59 | disposition home or self-care (01) ==
PROVIDERS: Emergency Provider Nurse Practitioner Family; PCP Nurse Practitioner
DX: J02.0 Streptococcal pharyngitis (principal)
CPT/HCPCS: 87880; 99213; G0463

== ENCOUNTER 2024-10-23 08:09 | Emergency (ER) | payer OTHER, SELFPAY ==
--- NOTE | 2024-10-23 08:11 | ED.URI ---
HPI - URI/Sore Throat General Chief Complaint: Upper Respiratory Infection Stated Complaint: sore throat Time Seen by Provider: 10/23/24 08:12 Source: patient Mode of arrival: ambulatory Limitations: no limitations History of Present Illness HPI Narrative: Irina is a 34-year-old female patient presenting to the clinic today with complaints of a sore throat x1 day. She reports her symptoms began last night with a sore throat. She denies any URI symptoms. No fevers or chills but does report some body aches. Tested positive on September 30 for strep. Finished antibiotics and states her symptoms improved. MD elicited complaint: sore throat and nasal congestion Related Data Home Medications ?Medication ?Instructions ?Recorded ?Confirmed ?Last Taken ?Type vits no.126-ferrous fum 1 tablet PO HS 12/20/23 10/18/24 07/05/24 History 28 mg iron-folic acid 800 mcg tablet (Classic ) ergocalciferol (vitamin D2) 1,000 2,000 unit PO DAILY 07/05/24 10/18/24 07/05/24 History unit capsule Allergies Allergy/AdvReac Type Severity Reaction Status Date / Time bismuth subsalicylate (From AdvReac Mild other Verified 10/23/24 08:11 Pepto-Bismol) Review of Systems Review of Systems: Pertinent positives per HPI. Patient denies any fever, chills, rash, headache, visual changes, dizziness, cough, shortness of breath, chest pain, palpitations, nausea, vomiting, diarrhea, constipation, abdominal pain, or any urinary issues. PMF Past Medical History Medical History Hemorrhoids Suppression of menses Encounter for initial insertion of intrauterine contraceptive device Surgical History Surgical History History of placement of ear tubes Family History Family History Father Testicular cancer Diabetes mellitus Depression Hypertension Grandparent Diabetes mellitus Cancer Social History Social History Smoking status: Never smoker Second hand tobacco smoke exposure: No Alcohol intake: never Substance use: never Substance use type: does not use Do You Feel Safe in your Home?: Yes Lack of Transportation: No Lack of Food: Never True Current Housing: I Have Housing Concerned About Future Housing: No Difficulty Paying Gas/Electric Bills: No Difficulty Paying for Meds: No Currently Unemployed: No Education: Master's Degree or Higher Difficulty w/ Childcare or Family Care: No Living arrangements: with family Occupation/Education: occupation 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 There is no relevant family history pertinent to the patient complaint. Exam Narrative: General: Well-developed, well nourished, in no apparent distress Head: Normocephalic, atraumatic Eyes: Pupils equally round and reactive to light bilaterally, EOM intact, sclera and conjunctive clear, no discharge, lids normal Ears: TMs intact and clear, ear canals clear, no drainage, grossly hearing normal. Nose: Nares patent, no discharge, no inflammation, no sinus tenderness. Mouth: Oral pharynx red with bilateral tonsillar enlargement with white exudate to the left tonsil, good dentition, MMM. Neck: Supple, trachea midline, enlargement of anterior cervical nodes, no thyroid masses or goiter palpable. Cardio: Regular rate and rhythm, s1 and s2 normal, no murmur appreciated. Resp: Clear to auscultation bilaterally, no rhonchi, rales, wheezing or rubs Course Course Emergency Course: Portions of this record may have been created with voice recognition software. Level of Care: Express Care Visit Vital Signs Vital signs: Vital Signs Temperature 36.7 C 10/23/24 08:24 Pulse Rate 108 H 10/23/24 08:24 Respiratory Rate 18 10/23/24 08:24 Blood Pressure 99/73 L 10/23/24 08:24 Pulse Oximetry 98 10/23/24 08:24 Oxygen Delivery Room Air 10/23/24 08:24 Temperature 36.7 C 10/23/24 08:24 Pulse Rate 108 H 10/23/24 08:24 Respiratory Rate 18 10/23/24 08:24 Blood Pressure 99/73 L 10/23/24 08:24 Pulse Oximetry 98 10/23/24 08:24 Oxygen Delivery Room Air 10/23/24 08:24 Vital signs reviewed MDM - URI/Sore Throat MDM Narrative Medical decision making narrative: At the time of visit patient is resting comfortably on the exam table. Patient appears to be nontoxic. Labs: Strep test was positive in the clinic today. Plan: I suspect patient has strep pharyngitis. Prescription for Augmentin was sent to the pharmacy. Supportive measures were discussed with the patient and they voiced understanding discharge instructions and agrees to treatment plan. Return precautions reviewed Differential Diagnosis Differential diagnosis: Likely upper respiratory infection, otitis media, sinusitis, viral infection, bronchitis, influenza, pharyngitis and other (COVID) Lab Data Labs: Lab Results 10/23/24 Range/Units 08:24 POC Grp A Strep Screen Positive (Negative) Discharge Plan Discharge Clinical Impression: Acute streptococcal pharyngitis Patient Disposition: Home Condition: Stable Instructions: Antibiotic Form, Strep Throat (ED) Additional Instructions: Take prescription medications only as prescribed-Augmentin Increase fluids and stay well hydrated Tylenol/motrin for pain/fever Flonase and OTC antihistamines as directed Vicks vapor rub to open sinuses Sinus rinses for congestion Cepacol spray, cough drops, throat lozenges, warm tea with honey/lemon, gargle salt water to soothe throat BRAT diet for diarrhea Clear liquids x 24 hours then advance as tolerated for nausea/vomiting Go to the ED if you develop a worsening in your condition- high fever not controlled by Tylenol or Motrin, dehydration, weakness, lethargy, shortness of breath, or chest pain. Follow up with your PCP in 3-5 days if symptoms persist. Patient Language: Bengali Prescriptions: New amoxicillin-pot clavulanate 875-125 mg tablet 1 tablet PO Q12H 10 Days Qty: 20 0RF No Action Classic 28 mg iron- 800 mcg tablet 1 tablet PO HS ergocalciferol (vitamin D2) 1,000 unit capsule 2,000 unit PO DAILY Follow-up/Referrals: Claude,ALPA Fernandes [Primary Care Provider] - Time of Disposition: 08:27 Quality NIHSS Nursing Documentation ED NIHSS nursing documentation: reviewed/agree
--- OUTSIDE RECORDS SUMMARY | 2024-10-23 08:17 | XMS_ITS | Encounter Summary ---
Author Organization [facility] Address [address] [place] [address] Care Team Providers Care Telecommunication Lines Repairer Name Role Phone Cristin Arce TOBACCO FEEDER CATCHER Primary Care Provider [phone] Encounter Details Date Type Department Care Team (Late st Contact Info) Description 12/10/2020 [employer] Message Enc [facility] Medical Group Family Medicine - [place] [address] [facility] [address] [place], [place] [address] Cristin Arce, KASSANDRA [address] [place] [address] [place] [address] RE: Test Results Social History Tobacco Use [...] on file Legal Sex Female 10:08 PM WEAVER TIRE CORD Gender Identity Not on file Sexual Orientation [...] Rule Out 05/12/2023 05/12/2023 05/12/2023 2:32 PM WEAVER TIRE CORD COVID-19 Rule Out 05/12/2023 05/12/2023 05/13/2023 5:23 PM WEAVER TIRE CORD Assessment Noted Time PHQ-9 Depression Total Score: 5 12/11/19 1:19 PM CDT documented as of this encounter Care Teams Telecommunication Lines Repairer Relationship Specialty Start Date End Date Cristin Arce NP [address] [place] [address] [place] [address] PCP - General NURSE PRACTITIONER 12/08/20 documented as of this encounter
--- OUTSIDE RECORDS SUMMARY | 2024-10-23 08:17 | XMS_ITS | Encounter Summary ---
Author Organization [facility] Address [address] [place] [address] Care Team Providers Care Asphalt Heater Operator Name Role Phone Cristin Arce SHORT STORY WRITER Primary Care Provider [phone] Encounter Details Date Type Department Care Team (Late st Contact Info) Description 12/17/2020 Boomr Message Enc [facility] Medical Group Family Medicine - [place] [address] [facility] [address] [place], [place] [address] Cristin Arce, KASSANDRA [address] [place] [address] [place] [address] Follow Up/Update Social History Tobacco Use Types [...] on file Legal Sex Female 10:08 PM GAGE MAKER Gender Identity Not on file Sexual [...] Rule Out 05/12/2023 05/12/2023 05/12/2023 2:32 PM GAGE MAKER COVID-19 Rule Out 05/12/2023 05/12/2023 05/13/2023 5:23 PM GAGE MAKER Assessment Noted Time PHQ-9 Depression Total Score: 5 12/11/19 1:19 PM CDT documented as of this encounter Care Teams Asphalt Heater Operator Relationship Specialty Start Date End Date Cristin Arce NP [address] [place] [address] [place] [address] PCP - General NURSE PRACTITIONER 12/08/20 documented as of this encounter
--- OUTSIDE RECORDS SUMMARY | 2024-10-23 08:17 | XMS_ITS | Clinical Summary ---
Author Organization [facility] Address [address] [facility] [place] [address] Phone Care Team Providers Care Steam Box Operator Name Role Phone Unavailable Primary Care Provider [...]
--- OUTSIDE RECORDS SUMMARY | 2024-10-23 08:17 | XMS_ITS | Clinical Summary ---
Author Organization [facility] Address [address] [place] [address] Care Team Providers Care Lining Parts Sewer Name Role Phone Joce Nunez MD Unavailable [phone] Cristin Arce MD Primary Care Provider [phone] Allergies Active Allergy Reactions Criticality Noted Date Comments Bismuth Subsalicylate Other (See comments) High 01/2017 Black hairy tongue Black hairy tongue Black hairy tongue Medications FreeStyle Lite Strips strip 05/31/2022 Active prenat.vits,nilda ,bka-izph-twjju tablet Take 1 each by mouth daily [...] on file Legal Sex Female 12:57 PM DISPATCH ASSOCIATE Gender Identity Not on file Sexual Orientation Not on file Obstetrics History Last Filed Vital Signs Vital Sign Reading Time Taken Comments Blood Pressure - - Pulse - - Temperature - - Respiratory Rate - - Oxygen Saturation - - Inhaled Oxygen Concentration - - Weight 87.5 kg (193 lb) 07/02/2022 9:07 AM DISPATCH ASSOCIATE Height 165.1 cm (5' 5 ) 07/02/2022 9:07 AM DISPATCH ASSOCIATE Body Mass Index 32.12 07/02/2022 9:07 AM DISPATCH ASSOCIATE Plan of Treatment Health Maintenance Due Date [...] patient's age to complete this topic Insurance [facility] Care Teams Lining Parts Sewer Relationship Specialty Start Date End Date Cristin Arce MD PCP - General Nurse Practitioner 06/16/22 Joce Nunez MD Consulting Physician Obstetrics and Gynecology 06/15/22
--- OUTSIDE RECORDS SUMMARY | 2024-10-23 08:17 | XMS_ITS | Encounter Summary ---
Author Organization [facility] Address [address] [place] [address] Care Team Providers Care Manager Media Name Role Phone Cristin Arce ENVIRONMENTAL SCIENCE TECHNICIAN Primary Care Provider [phone] Encounter Details Date Type Department Care Team (Late st Contact Info) Description 03/06/[address] [facility] Medical Group Family Medicine - [place] [address] [facility] [address] [place], [place] [address] Cristin Arce, KASSANDRA [address] [place] [address] [place] [address] follow up Social History Tobacco Use Types [...] on file Legal Sex Female 10:08 PM CARD LACER Gender Identity Not on file Sexual Orientation [...] Rule Out 05/12/2023 05/12/2023 05/12/2023 2:32 PM CARD LACER COVID-19 Rule Out 05/12/2023 05/12/2023 05/13/2023 5:23 PM CARD LACER Assessment Noted Time PHQ-9 Depression Total Score: 5 12/11/19 1:19 PM CDT documented as of this encounter Care Teams Manager Media Relationship Specialty Start Date End Date Cristin Arce NP [address] [place] [address] [place] [address] PCP - General NURSE PRACTITIONER 12/08/20 documented as of this encounter
--- OUTSIDE RECORDS SUMMARY | 2024-10-23 08:17 | XMS_ITS | Encounter Summary ---
Author Organization [facility] Address [address] [place] [address] Care Team Providers Care Lunchroom Supervisor Name Role Phone Critsin Arce PURCHASING ANALYST Primary Care Provider [phone] Encounter Details Date Type Department Care Team (Late st Contact Info) Description 04/02/2021 Royalty Exchange Message Enc [facility] Medical Group Family Medicine - [place] [address] [facility] [address] [place], [place] [address] Cristin Arce, KASSANDRA [address] [place] [address] [place], [place] [address] RE: follow up on Contrave Social History [...] on file Legal Sex Female 10:08 PM OVEN TECHNICIAN Gender Identity Not on file Sexual [...] Rule Out 05/12/2023 05/12/2023 05/12/2023 2:32 PM OVEN TECHNICIAN COVID-19 Rule Out 05/12/2023 05/12/2023 05/13/2023 5:23 PM OVEN TECHNICIAN Assessment Noted Time PHQ-9 Depression Total Score: 5 12/11/19 21 1:19 PM CDT documented as of this encounter Care Teams Lunchroom Supervisor Relationship Specialty Start Date End Date Cristin Arce NP [address] [place] [address] [place] [address] PCP - General NURSE PRACTITIONER 12/08/20 documented as of this encounter
--- OUTSIDE RECORDS SUMMARY | 2024-10-23 08:17 | XMS_ITS | Referral Summary ---
Author Organization [facility] Address [address] [place] [address] Care Team Providers Care Bricklayer Apprentice Name Role Phone Joce Nunez MD Unavailable [phone] Cristin Arce MD Primary Care Provider [phone] Allergies Active Allergy Reactions Criticality Noted Date Comments Bismuth Subsalicylate Other (See comments) High 01/2017 Black hairy tongue Black hairy tongue Black hairy tongue Medications FreeStyle Lite Strips strip 05/31/2022 Active prenat.vits,nilda ,hxe-vmmd-pecbl tablet Take 1 each by mouth daily [...] on file Legal Sex Female 12:57 PM SENIOR JAVASCRIPT ENGINEER Gender Identity Not on file Sexual Orientation Not on file Last Filed Vital Signs Vital Sign Reading Time Taken Comments Blood Pressure - - Pulse - - Temperature - - Respiratory Rate - - Oxygen Saturation - - Inhaled Oxygen Concentration - - Weight 87.5 kg (193 lb) 07/02/2022 9:07 AM SENIOR JAVASCRIPT ENGINEER Height 165.1 cm (5' 5 ) 07/02/2022 9:07 AM SENIOR JAVASCRIPT ENGINEER Body Mass Index 32.12 07/02/2022 9:07 AM SENIOR JAVASCRIPT ENGINEER Plan of Treatment Not on file Insurance [facility] [employer] Address: [address] [address] [facility] [employer] Address: [address] [address] Care Teams Bricklayer Apprentice Relationship Specialty Start Date End Date Cristin Arce MD PCP - General Nurse Practitioner 06/16/22 Joce Nunez MD Consulting Physician Obstetrics and Gynecology 06/15/22
--- OUTSIDE RECORDS SUMMARY | 2024-10-23 08:17 | XMS_ITS | Encounter Summary ---
Author Organization [facility] Address [address] [place] [address] Care Team Providers Care Upper Leather Cutter Name Role Phone Cristin Arce IMPORT/EXPORT ADMINISTRATOR Primary Care Provider [phone] Encounter Details Date Type Department Care Team (Late st Contact Info) Description 02/18/2021 [employer]ent [employer] Message Enc [facility] Medical Group Family Medicine - [place] [address] [facility] [address] [place], [place] [address] Cristin Arce, KASSANDRA [address] [place] [address] [place] [address] RE: Question Social History Tobacco Use Types [...] on file Legal Sex Female 10:08 PM GEAR NICKER Gender Identity Not on file Sexual Orientation [...] Rule Out 05/12/2023 05/12/2023 05/12/2023 2:32 PM GEAR NICKER COVID-19 Rule Out 05/12/2023 05/12/2023 05/13/2023 5:23 PM GEAR NICKER Assessment Noted Time PHQ-9 Depression Total Score: 5 12/11/19 1:19 PM CDT documented as of this encounter Care Teams Upper Leather Cutter Relationship Specialty Start Date End Date Cristin Arce NP [address] [place] [address] [place] [address] PCP - General NURSE PRACTITIONER 12/08/20 documented as of this encounter
--- OUTSIDE RECORDS SUMMARY | 2024-10-23 08:17 | XMS_ITS | Clinical Summary ---
Author Organization [facility] Address [address] [place] [address] Care Team Providers Care Time Clock Repairer Name Role Phone Cristin Arce NP Primary Care Provider [phone] Allergies Active Allergy Reactions Criticality Noted Date [...] gestational diabetes mellitus (GDM) in third trimester ([facility]) 01/07/201912/10 Encounters Date Type Department Care Team Description 09/30/2024 Scan [facility] INFO [facility] Scanned, Doc Med Group 09/14/2024 Scan [facility] INFO [facility]VCS Scanned, Doc Med Group from Last 3 Months Immunizations Immunization Administration Dates Next Due Influenza Adult (Generic) [...] on file Legal Sex Female 10:08 PM ASSOCIATE MEDIA PLANNER Gender Identity Not on file Sexual Orientation Not on file Last Filed Vital Signs Vital Sign Reading Time Taken Comments Blood Pressure 105/72 05/12/2023 2:07 PM ASSOCIATE MEDIA PLANNER Pulse 94 05/12/2023 2:07 PM ASSOCIATE MEDIA PLANNER Temperature 36.9 C (98.4 F) 05/12/2023 2:07 PM ASSOCIATE MEDIA PLANNER Respiratory Rate 22 05/12/2023 2:07 PM ASSOCIATE MEDIA PLANNER Oxygen Saturation 97% 05/12/2023 2:07 PM ASSOCIATE MEDIA PLANNER Inhaled Oxygen Concentration - - Weight 98 kg (216 lb) 05/12/2023 2:07 PM ASSOCIATE MEDIA PLANNER Height 165.1 cm (5' 5 ) 05/12/2023 2:07 PM ASSOCIATE MEDIA PLANNER Body Mass Index 35.94 05/12/2023 2:07 PM ASSOCIATE MEDIA PLANNER Plan of Treatment Health Maintenance Due Date Last Done Comments Hepatitis C 2007 Hepatitis B Vaccines (1 of 3 - 19+ 3-dose series) 2008 Annual Physical 12/10/2021 12/10/2020 Cervical Cancer Screening Pap Smear (Age 30 to 64) Every 3 Years 11/29/2022 11/30/2019 COVID-19 Vaccine ( season) 2024 11/20/2020 PHQ-2 (Physician [place]) 06/27/2024 11/15/2022 Cervical Cancer Screening Pap with [...] 5 Years) and At-Risk Patients (6 to 49 Years) Aged Out No longer eligible based on patient's age to complete this topic RSV Immunizations Under 20 Months Aged Out No longer eligible based on patient's age to complete this topic [place] [address] [facility] Care Teams Time Clock Repairer Relationship Specialty Start Date End Date Cristin Arce NP [address] [place] [address] [place] [address] PCP - General NURSE PRACTITIONER 12/08/20
--- OUTSIDE RECORDS SUMMARY | 2024-10-23 08:17 | XMS_ITS | Encounter Summary ---
Author Organization [facility] Address [address] [place] [address] Care Team Providers Care Custodial Engineer Name Role Phone Cristin Arce NP Primary Care Provider [phone] Encounter Details Date Type Department Care Team (Late st Contact Info) Description 03/05/2021 [employer] Message Enc [facility] Medical [facility] Family Medicine - [place] [address] [facility] [address] [place], [place] [address] Cristin Arce, KASSANDRA [address] [place] [address] [place] [address] RE: follow up on weight loss medication [...] on file Legal Sex Female 10:08 PM MIXER BLENDER Gender Identity Not on file Sexual Orientation [...] Rule Out 05/12/2023 05/12/2023 05/12/2023 2:32 PM MIXER BLENDER COVID-19 Rule Out 05/12/2023 05/12/2023 05/13/2023 5:23 PM MIXER BLENDER Assessment Noted Time PHQ-9 Depression Total Score: 5 12/11/19 21 1:19 PM CDT documented as of this encounter Care Teams Custodial Engineer Relationship Specialty Start Date End Date Cristin Arce NP [address] [place] [address] [place] [address] PCP - General NURSE PRACTITIONER 12/08/20 documented as of this encounter
--- OUTSIDE RECORDS SUMMARY | 2024-10-23 08:17 | XMS_ITS | Encounter Summary ---
Author Organization [facility] Address [address] [place] [address] Care Team Providers Care Nondestructive Tester Name Role Phone Cristin Arce MAKE UP ARTIST Primary Care Provider [phone] Encounter Details Date Type Department Care Team (Late st Contact Info) Description 12/10/2020 [employer] Message Enc [facility] Medical Group Family Medicine - [place] [address] [facility] [address] [place], [place] [address] Cristin Arce, KASSANDRA [address] [place] [address] [place] [address] follow up labs Social History Tobacco Use [...] on file Legal Sex Female 10:08 PM EQUINE INTERN Gender Identity Not on file Sexual Orientation [...] Rule Out 05/12/2023 05/12/2023 05/12/2023 2:32 PM EQUINE INTERN COVID-19 Rule Out 05/12/2023 05/12/2023 05/13/2023 5:23 PM EQUINE INTERN Assessment Noted Time PHQ-9 Depression Total Score: 5 12/11/19 1:19 PM CDT documented as of this encounter Care Teams Nondestructive Tester Relationship Specialty Start Date End Date Cristin Arce NP [address] [place] [address] [place] [address] PCP - General NURSE PRACTITIONER 12/08/20 documented as of this encounter
--- OUTSIDE RECORDS SUMMARY | 2024-10-23 08:17 | XMS_ITS | Clinical Summary ---
Author Organization [facility] Address [address] [facility] Attn: Epic Prelude ADT [place]ARK[place] [address] Care Team Providers Care Machine Stamper Name Role Phone Unavailable Primary Care Provider Unavailabl e Allergies No known active allergies Social History Tobacco Use Types Packs/Day Years Used Date Smoking Tobacco: Never Assessed Comments Unknown Sex and Gender Information Value Date Recorded Sex Assigned at Not on file Legal Sex Female 11:42 AM EXAMINING OFFICER Gender Identity Not on file Sexual Orientation [...] 19+ 3-dose series) 2008 HPV/Cotest (21-29) 2010 CERVICAL CANCER SCREENING 2019 HPV/Cotest (30-65) 2019 PAP SMEAR 2019 INFLUENZA VACCINE (#1) 2024 HPV VACCINES Aged Out No longer eligi ble based on patient's age to complete this topic
--- OUTSIDE RECORDS SUMMARY | 2024-10-23 08:17 | XMS_ITS | Encounter Summary ---
Author Organization [facility] Address [address] [place] [address] Care Team Providers Care Laminating Press Operator Name Role Phone Cristin Arce NP Primary Care Provider [phone] [phone] Encounter Details Date Type Department Care Team (Late st Contact Info) Description 12/24/2020 [employer] Message Enc [facility] Family Medicine - [place] [address] [facility] [address] [place], [place] [address] Cristin Arce, KASSANDRA [address] [place] [address] [place] [address] RE: Referral Request Social History Tobacco Use [...] on file Legal Sex Female 10:08 PM SWEDGER Gender Identity Not on file Sexual Orientation [...] Rule Out 05/12/2023 05/12/2023 05/12/2023 2:32 PM SWEDGER COVID-19 Rule Out 05/12/2023 05/12/2023 05/13/2023 5:23 PM SWEDGER Assessment Noted Time PHQ-9 Depression Total Score: 5 12/11/19 1:19 PM CDT documented as of this encounter Care Teams Laminating Press Operator Relationship Specialty Start Date End Date Cristin Arce NP [address] [place] [address] [place] [address] PCP - General NURSE PRACTITIONER 12/08/20 documented as of this encounter
--- OUTSIDE RECORDS SUMMARY | 2024-10-23 08:17 | XMS_ITS | Encounter Summary ---
Author Organization [facility] Address [address] [place] [id number] Care Team Providers Care River Tester Name Role Phone Cristin Arce CASER UP Primary Care Provider [phone] Encounter Details Date Type Department Care Team (Late st Contact Info) Description 04/10/2021 [employer] Message Enc [facility] Family Medicine - [place] [address] [facility] [place], [place] [address] Cristin Arce, KASSANDRA [address] [place] [address] RE: Question Social History Tobacco Use Types [...] on file Legal Sex Female 10:08 PM MANAGER SOCIAL Gender Identity Not on file Sexual Orientation [...] Rule Out 05/12/2023 05/12/2023 05/12/2023 2:32 PM MANAGER SOCIAL COVID-19 Rule Out 05/12/2023 05/12/2023 05/13/2023 5:23 PM MANAGER SOCIAL Assessment Noted Time PHQ-9 Depression Total Score: 5 12/11/19 1:19 PM CDT documented as of this encounter Care Teams River Tester Relationship Specialty Start Date End Date Cristin Arce NP [address] [place] [address] PCP - General NURSE PRACTITIONER 12/08/20 documented as of this encounter
[2024-10-23 08:24] VITALS: BP 99/73; PULSE 108; RESP 18; TEMP 36.7; O2SAT 98
[2024-10-23 08:27] LABS: EDSTREPNEGPOS1 Positive (Negative)
== END 2024-10-23 08:28 | disposition home or self-care (01) ==
PROVIDERS: Emergency Provider Nurse Practitioner Family; PCP Nurse Practitioner
DX: J02.0 Streptococcal pharyngitis (principal)
CPT/HCPCS: 87880; 99213; G0463

== ENCOUNTER 2024-11-30 15:42 | Emergency (ER) | payer OTHER, SELFPAY ==
--- OUTSIDE RECORDS SUMMARY | 2024-11-30 15:44 | XMS_ITS | Clinical Summary ---
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 Gender Identity Not on file Sexual Orientation Not on file Obstetrics History Last Filed Vital Signs Vital Sign Reading Time Taken Comments Blood Pressure - - Pulse - - Temperature - - Respiratory Rate - - Oxygen Saturation - - Inhaled Oxygen Concentration - - Weight 87.5 kg (193 lb) 07/02/2022 9:07 AM COTTON OPENER Height 165.1 cm (5' 5) 07/02/2022 9:07 AM COTTON OPENER Body Mass Index 32.12 07/02/2022 9:07 AM COTTON OPENER Plan of Treatment Health Maintenance Due Date Last Done Comments Cervical Cancer Screening 1989 Depression Screening 1989 Hepatitis C Screening 1989 Varicella Vaccines (1 of 2 - 13+ 2-dose series) 2002 Hepatitis B Screening 2007 Regular Well Visit/Exam 18-64 2007 Covid-19 Vaccine ( season) 2024 11/20/2020 Influenza Vaccine (Season Ended) 2025 04/12/2022, 04/12/2020, 04/12/2020, Additional history exists DTaP/Tdap/Td Vaccine (5 - Td or Tdap) 05/11/2032 05/11/2022, 01/07/2019, 12/06/2016, Additional history exists HPV Vaccines Aged Out No longer eligi ble based on patient's age to complete this topic Pneumococcal vaccine <65 Aged Out No longer eligible based on patient's age to complete this topic Insurance [facility] Care Teams Birdcage Assembler Relationship Specialty Start Date End Date Cristin Arce MD PCP - General Nurse Practitioner 06/16/22 Joce Nunez MD Consulting Physician Obstetrics and Gynecology 06/15/22
--- OUTSIDE RECORDS SUMMARY | 2024-11-30 15:44 | XMS_ITS | Referral Summary ---
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 Gender Identity Not on file Sexual Orientation Not on file Last Filed Vital Signs Vital Sign Reading Time Taken Comments Blood Pressure - - Pulse - - Temperature - - Respiratory Rate - - Oxygen Saturation - - Inhaled Oxygen Concentration - - Weight 87.5 kg (193 lb) 07/02/2022 9:07 AM WET PROCESS ASSISTANT HEAD MILLER Height 165.1 cm (5' 5) 07/02/2022 9:07 AM WET PROCESS ASSISTANT HEAD MILLER Body Mass Index 32.12 07/02/2022 9:07 AM WET PROCESS ASSISTANT HEAD MILLER Plan of Treatment Not on file Insurance [facility] Care Teams City Route Driver Relationship Specialty Start Date End Date Cristin Arce MD PCP - General Nurse Practitioner 06/16/22 Joce uNnez MD Consulting Physician Obstetrics and Gynecology 06/15/22
--- OUTSIDE RECORDS SUMMARY | 2024-11-30 15:44 | XMS_ITS | Clinical Summary ---
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
--- OUTSIDE RECORDS SUMMARY | 2024-11-30 15:44 | XMS_ITS | Clinical Summary ---
Author Organization [facility] Address [address] [place] [address] Phone Care Team Providers Care Aquatic Scientist Name Role Phone Unavailable Primary Care Provider [...] 3:20 PM CDT Height 165.1 cm (5' 5) 04/10/2021 3:20 PM CDT Body Mass Index 32.95 04/10/2021 3:20 PM CDT Plan of Treatment Health Maintenance Due Date Last Done Comments Hepatitis C Virus (HCV) Screening 1989 Hepatitis B Immunization (1 of 3 - 19+ 3-dose series) 2008 SARS-COV-2 Immunization ( - season) 2024 11/20/2020 Influenza Immunization (Season Ended) 2025 04/12/2020, 05/04/2014, 03/24/2013, Additional history exists Respiratory Syncytial Virus (RSV) Immunization (Adult) (1 - 1-dose 75+ series) 2064 DTaP/Tdap/Td Immunization Discontinued 2018, 12/06/2016, 03/24/2013 TdaP Immunization Completed 01/07/2019, , 03/24/2013 Cervical Cancer Screening (CCS) Discontinued Pap Smear Discontinued 11/30/2019 HPV/Cotest Discontinued Human Papillomavirus (HPV) Immunization Aged Out No longer eligible based on patient's age to complete this topic Meningococcal Immunization (ACWY) Aged Out No longer eligible based on patient's age to complete this topic Pneumococcal Immunization Combined Aged Out No longer eligible based on patient's age to complete this topic Rotavirus Immunization Aged Out No lo nger eligible based on patient's age to complete this topic Insurance
[2024-11-30 15:53] VITALS: BP 115/74; PULSE 101; RESP 18; TEMP 36.4; O2SAT 98
[2024-11-30 16:19] LABS: EDSTREPNEGPOS1 Positive (Negative)
--- NOTE | 2024-11-30 17:26 | ED_ITS ---
HPI - URI/Sore Throat General Chief Complaint: Upper Respiratory Infection Stated Complaint: sore throat Time Seen by Provider: 11/30/24 16:00 Source: patient and RN notes reviewed Mode of arrival: ambulatory Limitations: no limitations History of Present Illness HPI Narrative: 34-year-old female presents Express Care complaining of sore throat for 2-3 days. Patient has been dealing with recurrent strep throat her house with her children and herself. Patient has recently been treated with amoxicillin and Augmentin. Each time she was treat her symptoms completely resolved. Patient denies anyone else being sick in the house currently. Patient denies any other upper respiratory symptoms, fevers, difficulty swallowing, difficulty breathing, excessive drooling, or any other symptoms. Related Data Home Medications ?Medication ?Instructions ?Recorded ?Confirmed ?Last Taken ?Type vits no.126-ferrous fum 1 tablet PO HS 12/20/23 10/18/24 07/05/24 History 28 mg iron-folic acid 800 mcg tablet (Classic ) Allergies Allergy/AdvReac Type Severity Reaction Status Date / Time bismuth subsalicylate (From AdvReac Mild other Verified 11/30/24 15:51 Pepto-Bismol) Review of Systems Review of Systems: CONSTITUTIONAL: Denies fever, chills, body aches, or sweats. EYES: Denies visual changes, redness, or discharge. ENT: Negative for rhinorrhea, congestion, excessive drooling, dysphagia, or botany professor lgia. Positive for sore throat CARDIOVASCULAR: Denies chest pain, palpitations, or edema. RESPIRATORY: Negative for cough or dyspnea. GASTROINTESTINAL: Denies abdominal pain, nausea, vomiting, or diarrhea. GENITOURINARY: Denies dysuria or hematuria. SKIN: Denies rash or itching. MUSCULOSKELETAL: Denies back pain, joint pain, or myalgia. NEUROLOGIC: Denies headache, numbness, or weakness. PSYCHIATRIC: Denies anxiety or depression. All other systems reviewed are negative, except as documented in HPI. COUNTS INCLUDE 234 BEDS AT THE [facility] Past Medical History Medical History Hemorrhoids Suppression of menses Encounter for initial insertion of intrauterine contraceptive device Surgical History Surgical History History of placement of ear tubes Family History Family History Father Testicular cancer Diabetes mellitus Depression Hypertension Grandparent Diabetes mellitus Cancer Social History Social History Smoking status: Never smoker Second hand tobacco smoke exposure: No Alcohol intake: never Substance use: never Substance use type: does not use Do You Feel Safe in your Home?: Yes Lack of Transportation: No Lack of Food: Never True Current Housing: I Have Housing Concerned About Future Housing: No Difficulty Paying Gas/Electric Bills: No Difficulty Paying for Meds: No Currently Unemployed: No Education: Master's Degree or Higher Difficulty w/ Childcare or Family Care: No Living arrangements: with family Occupation/Education: occupation 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 There is no relevant family history pertinent to the patient complaint. Exam Narrative: GENERAL: This is a well-nourished, well-developed adult, in no apparent distress. They are non ill-appearing, nontoxic appearing. HEAD: normocephalic, atraumatic. EYES: Sclera clear/white. Vision is grossly intact. Conjunctiva normal bilaterally. Extraocular movements intact. EARS: External ears normal, auditory canals clear and without drainage, TMs without erythema or perforation. Hearing grossly intact. NOSE: External nose normal with no obvious nasal discharge, nasal turbinates without redness or swelling, no rhinorrhea. THROAT: Mucous membranes moist, posterior pharynx erythematous and patchy without exudate. Tonsils 2+ erythematous without exudate. Uvula is midline. Postnasal drip present. NECK: Neck supple, non-tender without lymphadenopathy, masses or thyromegaly. CARDIOVASCULAR: Regular rate and rhythm without murmurs, gallops, or rubs. RESPIRATORY: Clear to auscultation. Breath sounds equal bilaterally. No wheezes, rales, or rhonchi. SKIN: warm, Dry, intact with no suspicious lesions or rash, good texture and turgor. NEURO: awake, alert, and oriented to person, place and time. There were no obvious focal neurologic abnormalities. EXTREMITIES: No joint tenderness, effusion, or edema noted. BACK: Nontender without deformity. Course Course Emergency Course: Portions of this record may have been created with voice recognition software Level of Care: Express Care Visit Vital Signs Vital signs: Vital Signs Temperature 97.6 F 11/30/24 15:53 Pulse Rate 101 H 11/30/24 15:53 Respiratory Rate 18 11/30/24 15:53 Blood Pressure 115/74 11/30/24 15:53 Pulse Oximetry 98 11/30/24 15:53 Oxygen Delivery Room Air 11/30/24 15:53 Temperature 97.6 F 11/30/24 15:53 Pulse Rate 101 H 11/30/24 15:53 Respiratory Rate 18 11/30/24 15:53 Blood Pressure 115/74 11/30/24 15:53 Pulse Oximetry 98 11/30/24 15:53 Oxygen Delivery Room Air 11/30/24 15:53 MDM - URI/Sore Throat MDM Narrative Medical decision making narrative: Rapid strep positive. Symptoms consistent with strep throat. Since patient has failed treatment with Augmentin and amoxicillin, will try cephalexin. There was a concern that the family may be continuing to spread strep throat throughout the house. Discussed preventative measures and distant affecting measures. Advised close follow-up with PCP in your power generation technician. Discussed physical exam findings. Advised supportive measures and signs/symptoms to go to the ER. Pt is appropriate for outpt treatment and f/u. Differential Diagnosis Differential diagnosis: Likely upper respiratory infection, viral infection and pharyngitis Lab Data Attestation: I reviewed the patient's lab results. Labs: Lab Results 11/30/24 Range/Units 16:16 POC Grp A Strep Screen Positive (Negative) Discharge Plan Discharge Clinical Impression: Strep throat Patient Disposition: Home Condition: Stable Instructions: Antibiotic Form, Strep Throat (ED) Additional Instructions: You tested positive for strep throat. ?Please take the cephalexin as prescribed until gone. ?You will be contagious for 24 hours after starting the medication. ?After 24 hours on antibiotics throw tooth brush away and start using a new one. Wash your sheets and cup/water bottle that is used daily. Do not share drinks. Take Tylenol or Ibuprofen for pain or fever, if able. ?Rest and stay hydrated. ?Follow up with your PCP in 3 days if symptoms are not improving. ?Go to the ER immediately if you develop worsening symptoms such as shortness of breath, difficulty swallowing. ? Patient Language: Guamanian Prescriptions: New cephalexin 500 mg capsule 500 mg PO BID 10 Days Qty: 20 0RF No Action Classic 28 mg iron- 800 mcg tablet 1 tablet PO HS Follow-up/Referrals: Claude,ALPA Fernandes [Primary Care Provider] - Time of Disposition: 16:19
== END 2024-11-30 16:22 | disposition home or self-care (01) ==
PROVIDERS: PCP Nurse Practitioner
DX: J02.0 Streptococcal pharyngitis (principal)
CPT/HCPCS: 87880; 99213; G0463